=== PATIENT | male | born 1940 | race Caucasian/White ===

== ENCOUNTER 2017-09-02 11:12 | Day surgery (SDC) | payer MEDICARE, SELFPAY ==
[2017-09-02 12:02] VITALS: BP 146/87; PULSE 92; RESP 16; TEMP 36.1; O2SAT 94
[2017-09-02] MEDS: SODIUM CHLORIDE 0.9% 1,000 ML 200 ML IV (12:29)
--- NOTE | 2017-09-02 12:45 | PM.HP.1 ---
History of Present Illness Date Patient Seen: 09/02/17 Time Patient Seen: 12:45 Chief complaint: [id number] Narrative: 76-year-old male with personal history of colon polyps who presents today for routine colorectal surveillance. It has been 5 years since his last examination. He currently denies any gastrointestinal symptoms. No recent nausea, vomiting, abdominal pain, loss of appetite, unexplained weight loss, change in bowel habits, diarrhea, constipation, melena, hematochezia, or bright red blood per rectum. Patient History Medical History Benign prostatic hyperplasia (Acute) Hyperlipidemia (Acute) Hypertension (Acute) Osteoarthritis (Acute) Personal history of colonic polyps (Acute) Surgical History H/O arthroscopic knee surgery (Acute ~2013) H/O discectomy (Acute ~1975) H/O left knee surgery (Acute ~2012) History of colonoscopy (Acute) History of hip replacement (~2004) Family & Social History Family History: Reviewed 09/02/17 by Juanito Patel MD Social History: household members spouse Meds Home Medications Medication Instructions Recorded Confirmed Type fluticasone 0.05 mg INH QDAY #1 spr 02/06/16 09/02/17 Rx simvastatin 80 mg PO HS #90 tab 11/30/16 09/02/17 Rx lisinopril 10 mg PO QDAY #90 tab 07/14/17 09/02/17 Rx tamsulosin [Flomax] 0.4 mg PO QDAY 09/02/17 09/02/17 History Allergies Allergy/AdvReac Type Severity Reaction Status Date / Time No Known Drug Allergies Allergy Verified 09/02/17 12:34 Review of Systems Review of Systems All systems reviewed & are unremarkable except as noted in HPI and below Exam Vital Signs (past 8 hours): - 09/02/17 12:02 Temperature 97 F L Pulse Rate 92 H Respiratory Rate 16 Blood Pressure 146/87 H Pulse Oximetry 94 Oxygen Delivery Method Room Air Narrative Exam Narrative: Well-nourished well-developed elderly male in no acute distress. Alert oriented x3. His accompanies him at the bedside during my entire visit. Sclera nonicteric Neck supple Regular rate and rhythm Abdomen soft, nondistended, nontender, no masses Extremities show no clubbing, cyanosis, or edema Objective Labs Labs: No recent laboratory or radiographic studies for review Assessment & Plan Plan: Assessment/Plan Narrative: 76-year-old male with personal history of colon polyps. It has been 5 years since his last examination. He requires colorectal surveillance at this time for his history of polyps. Colonoscopy is once again recommended. Technical details of the procedure were discussed. Risks, benefits, alternatives were explained. Risks including but not limited to sedation, aspiration, bleeding, pain, missed lesion, incomplete examination, need for further radiographic studies, colonic perforation, need for major abdominal surgery, and all attendant risks of major surgery were discussed in detail. All questions were answered to his satisfaction, and he voiced understanding. Consent was placed on the chart. We will proceed as above.
--- NOTE | 2017-09-02 12:49 | PM.PREOP ---
Pre-operative Note Interval Note Pre-op Check: History & Physical Reviewed by Physician, Exam Performed and History & Physical exam performed today H&P completed within 30 days and has changed as indicated here:: 76-year-old male with personal history colon polyps seen and examined today. He requires colorectal surveillance for his history of polyps. Proceed with colonoscopy today as planned. ASA Class (for procedural sedation): II
[2017-09-02] MEDS: MIDAZOLAM 5 MG/5 ML VIAL IV (13:20)
[2017-09-02] MEDS: fentaNYL 250 MCG/5 ML INJ IV (13:20)
--- NOTE | 2017-09-02 13:25 | PM.OP.ENDO ---
Operative Date/Time/Diagnoses Date of procedure: 09/02/17 Time of procedure: 13:26 Pre-op diagnosis: Personal history of colon polyps Post-op diagnosis: other (Normal colon and rectum) Procedure & Clinicians Study performed: 1. Sedation per surgeon 2. Colonoscopy Same procedure as scheduled: Yes Indications: 76-year-old male with personal history of colon polyps. It has been at least 5 years since his last endoscopic surveillance. Colonoscopy is once again currently recommended. Surgeon: Juanito Patel Procedure Notes SCOAP/Timeout: Yes Procedure in detail: After obtaining informed consent, the patient was brought to the GI suite and placed in the left lateral decubitus position on the examination table. After placement of appropriate monitors, the patient was given incremental doses of Versed and Fentanyl until an appropriate level of sedation was achieved. A time out was held per SCOAP protocol. A digital rectal examination was performed and did not reveal any masses or obstructing lesions. The colonoscope was gently passed into the patient's anus and the entire colon navigated to the level of the cecum with minimal difficulty. Once in the cecum, the scope was withdrawn being sure to go before and beyond all mucosal folds and prominences and get an excellent examination. The findings are noted above. At the level of the rectal vault, the scope was retroflexed and the internal anal canal was examined. The scope was straightened and air aspirated from the colon. The instrument was removed from the patient's body and the procedure was concluded. The patient was allowed to awaken from sedation without difficulty and taken to the post-anesthesia care unit in good condition. Scope withdrawal time: 7:06 min Sedation minutes: 33 Findings: other findings (Normal colon and rectum) Specimen(s): none sent Complications: none Recommendations: High fiber diet and Other recommendation (No further colonoscopy indicated in the absence of symptoms) Plan for aftercare: 1. Discharged home Follow up: as needed Disposition: PACU
[2017-09-02 13:29] VITALS: BP 136/73; PULSE 73; RESP 10; TEMP 36.1; O2SAT 93
[2017-09-02 13:34] VITALS: BP 122/64; PULSE 75; RESP 15; TEMP 36.6; O2SAT 97
[2017-09-02 13:45] VITALS: BP 132/90; PULSE 68; RESP 16; TEMP 36.6; O2SAT 99
--- NOTE | 2017-09-02 13:58 | SUR.PHASEII ---
Abd soft. denied pain.
== END 2017-09-02 13:59 | disposition home or self-care (01) ==
PROVIDERS: Family Provider Family Medicine; PCP Family Medicine; Visit Provider Surgery
PROC: 0DJD8ZZ Inspection of Lower Intestinal Tract, Via Natural or Artificial Opening Endoscopic (ICD-10-PCS; CPT 45378; principal; 2017-09-02 13:00)
DX: Z86.010 Personal history of colon polyps (principal); N40.0 Benign prostatic hyperplasia without lower urinary tract symptoms; E78.5 Hyperlipidemia, unspecified; I10 Essential (primary) hypertension
CPT/HCPCS: G0121; 99152; 99153; G0105; J2250; J3010

== ENCOUNTER → 2018-07-06 09:23 | Outpatient (CLI) | payer MEDICARE, SELFPAY ==
[2018-07-06 10:12] LABS: Add Manual Diff / Slide Review NO; Basophils Absolute Auto 0 /uL (0-100); Basophils Percent Auto 0.9 % (0-2); Eosinophils Absolute Auto 100 /uL (0-450); Eosinophils Percent Auto 2.8 % (2-4); Hematocrit 42.2 % (41-53); Hemoglobin 14.5 g/dL (13.5-17.5); Lymphocytes Absolute Auto 1100 /uL (1100-4500); Lymphocytes Percent Auto 23.3 % (25-40); Mean Corpuscular HGB Conc 34.4 % (30-36); Mean Corpuscular Hemoglobin 32.3 PG (26-34); Mean Corpuscular Volume 93.8 fL (80-100); Monocytes Absolute Auto 300 /uL (0-900); Monocytes Percent Auto 7.6 % (3-14); Neutrophils Absolute Auto 3000 /uL (1500-7000); Neutrophils Percent Auto 65.4 % (50-75); Platelet Count 180 X10^3/uL (150-400); Red Cell Distribution Width 13.5 % (11.6-14.8); White Blood Cell Count 4.5 X10^3/uL (4.5-11.0)
[2018-07-06 10:34] LABS: Alanine Aminotransferase 28 IU/L (21-72); Albumin 4.4 g/dL (3.5-5.0); Albumin Globulin Ratio 1.4 (1.0-2.8); Alkaline Phosphatase 74 U/L (38-126); Aspartate Aminotransferase 30 IU/L (17-59); Bilirubin Total 0.8 mg/dL (0.2-1.3); Blood Urea Nitrogen 33 mg/dL (9-20); Calcium 10.9 mg/dL (8.4-10.2); Carbon Dioxide 27 mmol/L (22-32); Chloride 103 mmol/L (98-107); Cholesterol 220 mg/dL (140-199); Estimated Glomerular Filt Rate > 60.0 mL/min (>60); Globulin 3.1 g/dL (1.7-4.1); Glucose 111 mg/dL (80-110); HDL Cholesterol 66 mg/dL (40-60); HEMOLYSIS < 15 (0-50); LDL Cholesterol Calculated 127 mg/dL (<100); Potassium 4.9 mmol/L (3.4-5.1); Sodium 139 mmol/L (137-145); Total Protein 7.5 g/dL (6.3-8.2); Triglycerides 134 mg/dL (35-150)
[2018-07-06 11:05] LABS: Prostate Specific Antigen Scrn 1.73 ng/mL (0.1-4.0); Thyroid Stimulating Hormone 1.34 uIU/mL (0.47-4.68)
== END ==
PROVIDERS: PCP Family Medicine; Visit Provider Family Medicine
DX: E78.2 Mixed hyperlipidemia (principal); I10 Essential (primary) hypertension; N40.1 Benign prostatic hyperplasia with lower urinary tract symptoms
CPT/HCPCS: 36415; 80053; 80061; 84153; 84443; 85025; G0103

== ENCOUNTER → 2019-10-13 08:50 | Outpatient (CLI) | payer MEDICARE, SELFPAY ==
[2019-10-13 11:00] LABS: Add Manual Diff / Slide Review NO; Basophils Absolute Auto 100 /uL (0-100); Basophils Percent Auto 0.9 % (0-2); Eosinophils Absolute Auto 200 /uL (0-450); Eosinophils Percent Auto 3.2 % (2-4); Hematocrit 38.3 % (41-53); Lymphocytes Absolute Auto 1000 /uL (1100-4500); Lymphocytes Percent Auto 17.1 % (25-40); Mean Corpuscular HGB Conc 33.9 % (30-36); Mean Corpuscular Volume 94.5 fL (80-100); Monocytes Absolute Auto 500 /uL (0-900); Monocytes Percent Auto 7.9 % (3-14); Neutrophils Absolute Auto 4300 /uL (1500-7000); Neutrophils Percent Auto 70.9 % (50-75); Platelet Count 195 X10^3/uL (150-400); Red Blood Cell Count 4.05 X10^6/uL (4.5-5.9); Red Cell Distribution Width 13.4 % (11.6-14.8); White Blood Cell Count 6.1 X10^3/uL (4.5-11.0)
[2019-10-13 11:28] LABS: Carbon Dioxide 25 mmol/L (22-32); Chloride 104 mmol/L (98-107); HEMOLYSIS < 15 (0-50); Potassium 5.1 mmol/L (3.4-5.1); Sodium 137 mmol/L (137-145)
[2019-10-14 08:38] LABS: COVID19 Sendout Not Detected (Not Detect)
== END ==
PROVIDERS: Physician Assistant; PCP Family Medicine; Referring Provider Orthopaedic Surgery; Visit Provider Orthopaedic Surgery
DX: Z01.812 Encounter for preprocedural laboratory examination (principal); Z01.818 Encounter for other preprocedural examination; Z11.59 Encounter for screening for other viral diseases
CPT/HCPCS: 36415; 80051; 85025; 87635; 93005; 93010

== ENCOUNTER 2019-10-17 14:56 | Inpatient (IN) | payer MEDICARE, SELFPAY ==
[2019-10-12 08:58] VITALS: BMI 25.7
[2019-10-16] VITALS (16 sets, daily range): BP systolic 121–177; BP diastolic 52–103; PULSE 60–89; RESP 13–19; TEMP 35.8–36.8; O2SAT 95–99; BMI 25.7
--- NOTE | 2019-10-16 11:30 | PM.PREOP ---
Pre-operative Note COVID-19 COVID-19 status: Negative Result date/Date tested (Pos, Neg/Pending): 10/13/19 Interval Note History & Physical reviewed/Exam performed by Physician: Yes Changes to H&P: No
--- NOTE | 2019-10-16 11:30 | PM.OP.1 ---
Operative Date/Time/Diagnoses Date of procedure: 10/16/19 Time of procedure: 13:46 Pre-op diagnosis: Right knee osteoarthritis Post-op diagnosis: same Procedure & Clinicians Procedure: Right total knee arthroplasty Same procedure as scheduled: Yes Indications: The patient presents today for total knee arthroplasty after failure of conservative treatment. The nature of the procedure including the risks and benefits, alternatives, postoperative course and expected outcome were discussed and all questions answered. Consent was obtained. Operative site confirmed and marked. Surgeon: Gordy Lora Sulfur Chloride Operator: [place] Sierra Anesthesia Type: General, Spinal, Peripheral nerve block and Local Operative Notes Closure Type: primary Specimen(s): none sent Prosthetic devices, grafts, tissues, transplants, or devices: Lux and Nephew Ant BCS: 7 femoral component, 6 tibial component, 9 mm BCS polyethylene tray and 32 x 9 mm round patella Applied: implant(s) Estimated Blood Loss (mL): 5 Blood products transfused: none Tourniquet time (min): 50 Procedure in detail: The patient was taken to the operative suite and placed under anesthesia. The patient was given prophylactic antibiotics prior to surgery. The patient was also given tranexamic acid, 1 g, just prior to surgery for postoperative hemostasis. The lateral knee was prepped and the joint injected with 20 mL of 1% Lidocaine with epinephrine. The knee was then prepped and draped in usual sterile fashion. The leg was exsanguinated with an Esmarch dressing and the tourniquet raised to 250 torr. A 15 cm anterior incision was made. Next a medial trivector arthrotomy was made. The extensor mechanism was marked to ensure accurate repair. Initial exposing dissection was carried out medially and laterally. The knee was then flexed and the intramedullary femoral guide chetna placed. The distal femoral cut was made in 6? of valgus at the +2 position. The femoral size was measured and the appropriate cutting block was then placed and the anterior, posterior and chamfer cuts made. The intramedullary tibial alignment chetna was then placed. The guide was set to remove approximately 9 mm from the less affected medial side. The proximal tibial cut was then made with an oscillating saw. All meniscus and bony debris was then removed. Posterior femoral osteophytes removed with a curved osteotome. Flexion extension gaps were checked. There was slight tightness laterally which is not unexpected given his preoperative alignment. This was corrected using a pie crust type technique with 15 blade and lateral capsular tissue. The soft tissues were then injected with a combination of 20 mL of half percent Marcaine with epinephrine and 20 mL of Exparel. The trial components were then placed. The knee was then extended and the patellar thickness was measured and a cut made removing approximately 9 mm of bone. The patella was then sized and drilled. Some excess lateral bone was excised and the patellofemoral ligament released. The knee went into full extension and flexion beyond 130?. There was excellent medial-lateral balance throughout motion. Patellar tracking was excellent. The trial components were removed and the knee was cleansed with Pulsavac irrigation and dried. The final components were cemented with high viscosity vacuum mixed bone cement with antibiotics. The joint was filled with a dilute Betadine solution. The knee was held in extension and the patellar clamped until the cement was adequately cured. The knee was then irrigated. The extensor mechanism was closed with 5 interrupted #1 Vicryl sutures and a running Quill suture at approximately 90 degrees of flexion. The joint was then injected with a combination of 1 g of tranexamic acid and 20 mL of quarter percent Marcaine with epinephrine. The subcutaneous tissue was closed with 2 0 Vicryl. The skin was closed with absorbable subcuticular sutures and surgical adhesive. An Aquacel dressing and Vinay wrap were then applied. The patient tolerated the procedure well and was returned to recovery room in good condition. Complications: none Post-operative Condition: stable Disposition: PACU Plan for aftercare: [facility] Protocol.
--- NOTE | 2019-10-16 11:32 | DI.RAD.S_ITS ---
PROCEDURE: XR KNEE RT 1TO2V INDICATIONS: tka TECHNIQUE: AP and lateral views of the knee acquired. COMPARISON: [facility] [place], CR, XR KNEE ARTHRITIC SERIES RT, 08/29/2019, 13:01. FINDINGS: Bones: Patient is status post total knee arthroplasty. Hardware components are in expected positions. Visualized bony structures are intact. Soft tissues: Overlying postoperative changes are noted. IMPRESSION: Status post total knee arthroplasty with expected postsurgical changes. Dictated by: Hiren Kamara M.D. on 10/16/2019 at 16:35 Approved by: Hiren Kamara M.D. on 10/16/2019 at 16:36
--- NOTE | 2019-10-16 11:44 | SUR.OPER ---
Supine on padded OR bed. Pillow under head, arms secured on padded armboards <90 degree abduction. Safety belt across torso. Non-operative leg secured with tape over blanket over lower leg. Operative leg secured in DeMayo/Sohail positioner. Foam padded brace at thigh of operative leg.
[2019-10-16] MEDS: ACETAMINOPHEN 325 MG TABLET 975 MG PO (12:06)
[2019-10-16] MEDS: CELECOXIB 200 MG CAPSULE PO (12:07)
[2019-10-16] MEDS: CEFAZOLIN 2 GM/100 ML FROZ.PIGGY IV ×2 (12:07→20:35)
[2019-10-16] MEDS: LACTATED RINGERS 1,000 ML 42 ML IV ×2 (12:08→13:00)
[2019-10-16] MEDS: LIDOCAINE 1% W/EPI 20 ML INJ (12:54)
[2019-10-16] MEDS: BUPIVACAINE 0.25% W/ EPI (PF) 20 ML, TRANEXAMIC ACID 1,000 MG, SODIUM CHLORIDE 0.9% 10 ML INJ (12:55)
[2019-10-16] MEDS: BUPIVACAINE 0.25% W/ EPI (PF) 40 ML, BUPIVACAINE LIPOSOME 266 MG, SODIUM CHLORIDE 0.9% ... INJ (12:57)
[2019-10-16] MEDS: OXYCODONE IR 5 MG TABLET PO ×2 (15:15→16:10)
--- NOTE | 2019-10-16 15:15 | SUR.PHASEI ---
Report called to Katie
[2019-10-16] MEDS: IBUPROFEN 400 MG TABLET PO ×2 (16:10→20:36)
[2019-10-16] MEDS: LACTATED RINGERS 1,000 ML 100 ML IV (16:10)
[2019-10-16] MEDS: ACETAMINOPHEN 325 MG TABLET 650 MG PO ×2 (16:10→20:36)
[2019-10-16] MEDS: HYDROMORPHONE 0.5 MG INJ 0.2 MG IV (17:27)
[2019-10-16] MEDS: HYDROMORPHONE 2 MG TABLET PO ×2 (19:12→23:48)
[2019-10-16] MEDS: hydrOXYzine pamoate 25 MG CAPSULE PO (19:13)
[2019-10-16] MEDS: DOCUSATE 100 MG CAPSULE PO (20:36)
[2019-10-16] MEDS: ASPIRIN EC 81 MG TABLET PO (20:36)
[2019-10-16] MEDS: TAMSULOSIN 0.4 MG CAPSULE PO (20:36)
[2019-10-16] MEDS: SIMVASTATIN 40 MG TABLET 80 MG PO (20:36)
[2019-10-17] MEDS: IBUPROFEN 400 MG TABLET PO ×6 (01:21→20:45)
[2019-10-17] MEDS: HYDROMORPHONE 2 MG TABLET PO ×6 (03:25→21:06)
[2019-10-17] MEDS: CEFAZOLIN 2 GM/100 ML FROZ.PIGGY IV (03:26)
[2019-10-17 05:00] VITALS: BP 172/93; PULSE 70; RESP 18; TEMP 36.6; O2SAT 98
[2019-10-17] MEDS: hydrOXYzine pamoate 25 MG CAPSULE PO (05:09)
[2019-10-17 06:18] LABS: Hematocrit 34.5 % (41-53); Hemoglobin 11.6 g/dL (13.5-17.5)
[2019-10-17 07:39] VITALS: BP 164/78; PULSE 71; RESP 18; TEMP 36.9; O2SAT 98
[2019-10-17] MEDS: TAMSULOSIN 0.4 MG CAPSULE PO ×2 (07:51→20:45)
[2019-10-17] MEDS: LORATADINE 10 MG TABLET PO (07:51)
[2019-10-17] MEDS: lisinopriL 10 MG TABLET PO (07:51)
[2019-10-17] MEDS: ACETAMINOPHEN 325 MG TABLET 650 MG PO ×3 (07:51→20:45)
[2019-10-17] MEDS: DOCUSATE 100 MG CAPSULE PO ×2 (07:51→20:45)
[2019-10-17] MEDS: ASPIRIN EC 81 MG TABLET PO ×2 (07:51→20:45)
[2019-10-17] MEDS: FLUTICASONE 120 SPRAY/16 GM SPRAY.SUSP NASAL (07:52)
[2019-10-17] MEDS: SODIUM CHLORIDE 0.9% FLUSH 10 ML IV ×2 (07:52→20:45)
--- NOTE | 2019-10-17 09:18 | PT.IIE ---
Current Diagnoses Unilateral primary osteoarthritis, left knee (10/16/19) Surgery Performed Operation Date: 10/16/19 12:15 Actual Procedures p Total Knee Arthroplasty(Right) - Gordy Lora MD Surgical History (Last Updated 10/12/19 @ 09:11 by Destiny Gonsales RN) H/O arthroscopic knee surgery (Acute ~2013) H/O discectomy (Acute ~1975) H/O left knee surgery (Acute ~2012) History of colonoscopy (Acute) History of hip replacement (~2004) History of vasectomy (Acute) Hx of tonsillectomy (Acute) Medical History (Last Updated 10/12/19 @ 09:11 by Destiny Gonsales RN) Benign prostatic hyperplasia (Acute) Hyperlipidemia (Acute) Hypertension (Acute) Melanoma (Acute) Osteoarthritis (Acute) Personal history of colonic polyps (Acute) Sinus congestion (Acute) Skin cancer (Acute) Physical Therapy Inpatient Evaluation/Re-Eval M1 PT/OT-IP Prior Functional Status Start: 10/17/19 12:10 Freq: NEEDED Status: Active Protocol: Document 10/17/19 09:18 AB (Rec: 10/17/19 12:29 [id number]) Medical Review Prior Functional Status Medical History Reviewed Yes Communication able to make needs known Mobility and Gait pt stated that he is independent with all mobilities and ambulation wtihout AD Social History Household Members spouse Living Arrangements House Number of Floors (Floors) Two Floors Number of Stairs To Enter/Railing? no steps to enter but has 18 steps with B rails to main level of the house Pt lives in [facility] Home Environment High Toilet,Tub/Shower Home Equipment Front Wheel Walker,Straight Cane,Shower Seat with Backrest ,Grab Bars In Shower M2 PT-IP Current Condition Start: 10/17/19 12:10 Freq: NEEDED Status: Active Protocol: Document 10/17/19 09:18 AB (Rec: 10/17/19 12:29 AB [id number]) Physical Therapy Current Condition Current Condition Evaluation Date 10/17/19 Treatment Diagnosis s/p R TKA; difficulty in walking Onset Date 10/16/19 Weight Bearing Status Weight Bearing Status Weight Bear as Tolerated Allowed Weight Bearing Amount (enter % RLE: WBAT or #) (%) M3 PT-IP Subjective Start: 10/17/19 12:10 Freq: NEEDED Status: Active Protocol: Document 10/17/19 09:18 AB (Rec: 10/17/19 12:29 AB [id number]) Subjective Physical Therapy Visit Type Type Initial Evaluation Visit Start Time 09:18 Visit Stop Time 10:05 Total Visit Minutes 29 Number of HAND PROFILER Visits 0 Physical Therapy Visit Comments Patient Comments pt is agreeable to do PT; pt stated that he cannot go home today and maybe has to go to a rehab place Therapy Pain Assessment Pain When Pain Assessed During Mobility Location rt knee Intensity 8 Scale Used Numeric (0 - 10) Pain Management Techniques Apply Cold,Distraction, Modification of Treatment,Re- positioning,Timing of Activity with Medications M4 PT-IP Mobility and Gait Start: 10/17/19 12:10 Freq: NEEDED Status: Active Protocol: Document 10/17/19 09:18 AB (Rec: 10/17/19 12:29 [id number]) PT-Bed Mobility Assessment Supine to Sit Supine to Sit Standby Assistance PT-Transfer Assessment Sit to and From Stand Sit to and from Stand Moderate Assistance,1 Person Assistance,Use of Upper Extremities Equipment Transfer Assistive Device Gait Belt,Front Wheeled Walker Orthotic/Prosthetic Devices or Brace: No Transfers Transfer Destination Chair Transfer Technique ambulated using FWW Transfer Ability Level of Assist Moderate Assistance,1 Person Assistance,Use of Upper Extremities Comments Mobility Comments pt completed supine to sit SBA . was able to sit on EOB SBA. completed sit to stand mod A and cues. ambulated towards the bed ~ 15 ft using FWW mod A and cues. agreed to walk more. completed sit to stand from chair x 2 reps mod A and cues. ambulated using FWW mod A and cues ~ 15 ft and stated that he has to sit down. agreed to sit up on chair. completed sit to stand again from EOB mod A and ambulated towards the chair 15 ft using FWW mod A. positioned pt on chair. call light and table placed within reach. Gait Assessment Gait Gait Assistance Required: Moderate Assistance Distance (Feet) 15 Able to Maintain Weight Bearing Status Yes During Gait Assistive Devices Assistive Device Gait Belt,Front Wheeled Walker Orthotic/Prosthetic Devices or Brace: No Gait Deviations General Gait Pattern Antalgic,Decreased Stride Length,Decreased Feet Clearance,Step-to Gait Factors Limiting Gait Function Factors Limiting Gait Function Decreased Activity Tolerance, Decreased Strength,Difficulty Following Directions,Limited Range of Motion,Pain,Poor Balance,Poor Safety Awareness Comments Gait Comments completed ambulation using FWW mod A 15 ft x 3. requires cues for R quads activation. PT-Balance Assessment Sitting Balance and Reactions Static Sitting Balance Ability Good Dynamic Sitting Balance Ability Good Standing Balance and Reactions Static Standing Balance Ability Fair Dynamic Standing Balance Ability Fair Device Used FWW M5 PT-IP Objective Assessments Start: 10/17/19 12:10 Freq: NEEDED Status: Active Protocol: Document 10/17/19 09:18 AB (Rec: 10/17/19 12:29 AB [id number]) Orientation Orientation/Cognition Level of Alertness Alert Safety Awareness Decreased Safety Awareness Gross Range of Motion Lower Extremity ROM Assessment Right Impaired Impairments R knee flexion: ~ 70 deg extension: 10 deg less of neutral 0 Strength Lower Extremity Strength Assessment Right Impaired Hip 4-/5 Knee 3+/5 Sensation Assessment Sensation Gross Sensation WNL Muscle Tone Muscle Tone WNL Yes M6 PT-IP Treatment Start: 10/17/19 12:10 Freq: NEEDED Status: Active Protocol: Document 10/17/19 09:18 AB (Rec: 10/17/19 12:29 AB [id number]) Physical Therapy Treatment Exercises Exercises Heel Slides Education Education Provided Precautions,Weight Bearing Status,Post-Op Packet,Safety Other Treatments Other Treatment Performed completed heels slides prior to getting up out of bed pt has FWW in room but one side does not lock in place. educated pt on safety and options for obtaining one. stated that he will ask his spouse to buy one. M7 PT-IP Assessment and Plan Start: 10/17/19 12:10 Freq: NEEDED Status: Active Protocol: Document 10/17/19 09:18 AB (Rec: 10/17/19 12:29 AB [id number]) PT Summary Assessment and Plan Potential Rehabilitation Potential Good Status of Condition at Evaluation Evolving Summary Impairments Pain,ROM,Strength,Balance, Coordination,Sensation,Tone, Cognition,Bed Mobility, Transfers,Gait,Activity Tolerance Assessment Summary pt requiring mod A with transfers and ambulation using FWW. d/c plan depending on progress but at this time may require SNF rehab. caregiver training will be conducted when appropriate as well as stair climbing prior to d/c. will continue to assess progress. Goals Bed Mobility Goal Independent Transfer Goal Standby Assistance,Front Wheeled Walker Gait Goal Standby Assistance,Front Wheel Walker Gait Distance 200 Other Goals up/down 18 steps B rails SBA Days to Meet Goals 5 Frequency of Treatment Frequency Of Treatment Twice a Day Treatment Plan Physical Therapy Treatment Plan Bed Mobility Training,Transfer Training,Gait Training, Therapeutic Exercise,Balance Retraining,Post Op Education, Discharge Planning,Hot or Cold Pack,Neuromuscular Re-ed, Coordination Retraining,Manual Therapy Other Recommendations and Next Treatment ambulation, stair climbing Focus Recommendations To Nursing Amount of Assist Needed 1 Person Assist Discharge Recommendations PT Discharge Recommendations Home with Assistance,SNF Rehab ,Outpatient PT Other Discharge Recommendations SNF vs home with assist and outpt PT Equipment Needed for Home Before FWW Discharge Transportation Needs at Discharge Private Vehicle,Wheelchair/ Cabulance
--- NOTE | 2019-10-17 09:48 | CM.DANOTE ---
DCP/Assessment: Reviewed chart. Patient is a 78yr old male admitted to [facility] for elective right TKA performed on 10-16-19. PCP is Dr. Morrissey. Primary payor is 1)Medicare 2)[employer]. Met with patient explained role. Patient plans to d/c home when medically stable. Resides with spouse on [facility]. Therapy evaluation pending. P: CM team to continue to follow. Anticipate home within the next 24hrs. GEN Zaragoza Discharge Planning/Care Management CM Discharge Assessment Start: 10/17/19 09:45 Freq: Status: Active Protocol: Document 10/17/19 09:45 KJS (Rec: 10/17/19 09:48 KJS [id number]) Discharge Planning Assessment Assigned Cathode Ray Tube Salvage Processor GEN Zaragoza Contact Information Poonam Boyle (spouse) Advance Directives? Yes Advance Directives on File No History Provided By Patient,Medical Record Prior Living Arrangements House Household Members spouse Type of transporation used prior to Drives own vehicle admit Independent with ADL's Yes Is patient alert and oriented? Yes Caregiver for Another No DME Already Rented / Owned FWW / Walker Patient/Family Preference OP PT Therapy Barriers to Discharge No Discharge Plan Home Whiteboard Updated in Patient Room with Yes name and ext. # of Cathode Ray Tube Salvage Processor Review Status In Process Next Review Type Continued Stay Review Pre-Anesthesia Assessment Start: 10/12/19 08:58 Freq: Status: Complete Protocol: Document 10/12/19 08:58 CAB (Rec: 10/12/19 09:37 CAB [id number]) Pre-Anesthesia Assessment Preferred Name Rigoberto or Bharath Patient Information Reviewed Via Phone Assessment Assessment Completed With Patient Comment Will do labs/EKG & COVID screen @ 10/13/19 Primary Care Provider Ab Morrissey Seen Specialist in Last 12 Months Yes Specialist Seen Thinner Sprayer,Orthopedist Primary Language Bhutanese Steel Tester Required No Height 185.42 cm Weight 88.451 kg Body Mass Index (BMI) 25.7 Hearing Ability Normal Visual Assist Glasses Dentition Type Teeth, Natural Present Barriers to Learning None Hx Anesthesia Reactions No Hx Family Anesthesia Reaction No Hx Malignant Hyperthermia No Hx Blood Transfusions No Anesthesia Review Requested No alcohol intake current alcohol intake frequency 0-2 drinks per day Smoking Status Never smoker Substance Use Type does not use Pain Present Pain Reported Musculoskeletal Symptoms Abnormal Gait,Difficulty Walking,Joint Pain History of Falling (Recent or History of Yes ) Patient is completely paralyzed or No completely immobile Mental Status Oriented to own ability Is patient on oxygen? No Does patient have WALTER/SOB No Hx Sleep Apnea No Currently Taking a Beta Miguel No Can You Climb a Flight of Stairs Without Yes SOB Hx Chest Pain No Hx SOB No Hx Syncope or Dizziness No Anti-Coagulant Therapy No Has a Physical Education Aide No Cardiac Testing No Hx Pacemaker/ICD No Pacemaker Rep Required? No Cardiac Clearance Received Not Applicable Diet Type At Home Regular dysphagia No Bladder Pattern Nocturia Urinary Catheter Present No Hx Urinary Self Catheterization No Diabetes No Hx Drug Resistant Organism No Presence of External or Internal Medical Yes: Bilat hip prosthesis Devices Have you had any close contact with No someone diagnosed with COVID-19? Marital Status Lives With spouse Prior Living Arrangements House Number of Floors (Floors) Two Floors Support System Friend(s),Spouse Does the Patient Have Assistance After Yes Surgery Patient Discharge Plan Description Return Home Comment Pt advised 1-2 day length of stay per surgeon Additional comment Lives on [facility] Feels Safe in Current Environment Yes Been Physically Hurt or Threatened By a No Person in Current Environment Do you have thoughts of harming yourself None or others? Are you currently considering suicide? No Do you have a plan to hurt yourself or No Plan others? Do You Have Any Spiritual Beliefs That No May Affect Your HC Choices? Do You Have Any Cultural Practices That No May Affect Your HC Choices? Comment Presbyterian Who Can We Speak to About Patient's Care Family, friends Identifying Code for Release of Patient Declines to issue Information Health Care Proxy/Next of Kin Poonam () Health Care Proxy [phone] Emergency Contact Name Poonam () Emergency Contact [phone] Advance Directives? Yes: Pt declines to bring in copy Advance Directives on File No Power of Cocoa Milling Machine Operator Yes: Nothing legally written out, but is first contact Power of Cocoa Milling Machine Operator Name Poonam Boyle- Power of Cocoa Milling Machine Operator Cell PAC Instructions Durable medical equipment, Medications to take/avoid, Nasal antibiotic,No ETOH/ petroleum product on skin DOS, Post-op transportation,Sensory aids,Sturdy shoes/comfortable clothes,Do not bring valuables and remove jewelry
[2019-10-17 11:35] VITALS: BP 155/79; PULSE 65; RESP 16; TEMP 36.6; O2SAT 98
--- NOTE | 2019-10-17 11:38 | P.PN_ITS ---
Subjective Subjective Date Patient Seen: 10/17/19 Time Patient Seen: 11:39 Interval history: The patient is progressing well. Pain is well controlled. Exam Vital Signs (past 8 hours): - 10/17/19 05:00 10/17/19 07:39 10/17/19 11:35 Temperature 97.9 F 98.4 F 97.8 F Pulse Rate 70 71 65 Respiratory Rate 18 18 16 Blood Pressure 172/93 H 164/78 H 155/79 H Pulse Oximetry 98 98 98 Oxygen Delivery Method Room Air Oxygen Flow Rate 0 Narrative Exam Narrative: The dressing is intact. There is expected swelling. The leg is neurovascularly intact. Objective Labs Result Diagrams: 10/17/19 04:52 Labs: Laboratory Results - last 24 hr 10/17/19 04:52 Hgb 11.6 L Hct 34.5 L Assessment & Plan Post-op Postoperative Procedures: Procedures Operation Date: 10/16/19 12:15 Actual Procedures Side Surgeon p Total Knee Arthroplasty Right Gordy Lora MD Postoperative status narrative: The patient is progressing as expected postop day 1 total knee arthroplasty. Will discharge plan discharge to home tomorrow. He lives on [facility] [address] which is only accessible by water taxi or plain. Quality VTE Deep Vein Thrombosis/Pulmonary Embolism Present on Admission: No
--- NOTE | 2019-10-17 14:30 | PT.IPTN ---
Current Diagnoses Unilateral primary osteoarthritis, left knee (10/17/19) Surgery Performed Operation Date: 10/16/19 12:15 Actual Procedures p Total Knee Arthroplasty(Right) - Gordy Lora MD Physical Therapy Treatment Note M2 PT-IP Current Condition Start: 10/17/19 12:10 Freq: NEEDED Status: Active Protocol: Document 10/17/19 09:18 AB (Rec: 10/17/19 12:29 AB [id number]) Physical Therapy Current Condition Current Condition Evaluation Date 10/17/19 Treatment Diagnosis s/p R TKA; difficulty in walking Onset Date 10/16/19 Weight Bearing Status Weight Bearing Status Weight Bear as Tolerated Allowed Weight Bearing Amount (enter % RLE: WBAT or #) (%) M3 PT-IP Subjective Start: 10/17/19 12:10 Freq: NEEDED Status: Active Protocol: Document 10/17/19 14:30 AB (Rec: 10/17/19 15:54 AB [id number]) Subjective Physical Therapy Visit Type Type Treatment Note Visit Start Time 14:30 Visit Stop Time 14:42 Total Visit Minutes 12 Number of GREEN FEED ATTENDANT Visits 0 Physical Therapy Visit Comments Patient Comments pt agreed to do PT but refused to do stair climbing training today Therapy Pain Assessment Pain When Pain Assessed During Mobility Pain Present Pain Present Pain Reported Location rt knee Intensity 7 Scale Used Numeric (0 - 10) Pain Behaviors Guarding Pain Management Techniques Distraction,Modification of Treatment,Timing of Activity with Medications M4 PT-IP Mobility and Gait Start: 10/17/19 12:10 Freq: NEEDED Status: Active Protocol: Document 10/17/19 14:30 AB (Rec: 10/17/19 15:54 AB [id number]) PT-Bed Mobility Assessment Supine to Sit Supine to Sit Standby Assistance Sit to Supine Sit to Supine Standby Assistance PT-Transfer Assessment Sit to and From Stand Sit to and from Stand Minimal Assistance,1 Person Assistance,Use of Upper Extremities Equipment Transfer Assistive Device Gait Belt,Front Wheeled Walker Orthotic/Prosthetic Devices or Brace: No Comments Mobility Comments completed supine to sit SBA and cues. completed sit to stand min A from EOB with cues . pt can be impulsive and cues provided for techniques and safety. pt completed ambulation in room using FWW ~ 30 ft. refused to do stair training and stated that he is not ready for it. pt requested to go back to bed afterwards and stated that he did not sleep well last night and wants to take a nap. completed sit to supine SBA. positioned pt in bed. call light and table placed within reach. Gait Assessment Gait Gait Assistance Required: Minimum Assistance Distance (Feet) 30 Able to Maintain Weight Bearing Status Yes During Gait Assistive Devices Assistive Device Gait Belt,Front Wheeled Walker Orthotic/Prosthetic Devices or Brace: No Gait Deviations General Gait Pattern Antalgic,Decreased Stride Length,Decreased Feet Clearance,Step-to Gait Factors Limiting Gait Function Factors Limiting Gait Function Decreased Activity Tolerance, Decreased Strength,Difficulty Following Directions,Pain,Poor Balance,Poor Safety Awareness Comments Gait Comments pt presents with unsteady shuffling gait and has decrease safety awareness affecting mobility independence. Stair Climbing Assessment Comments Stair Climbing Comments pt refused M5 PT-IP Objective Assessments Start: 10/17/19 12:10 Freq: NEEDED Status: Active Protocol: Document 10/17/19 09:18 AB (Rec: 10/17/19 12:29 AB [id number]) Orientation Orientation/Cognition Level of Alertness Alert Safety Awareness Decreased Safety Awareness Gross Range of Motion Lower Extremity ROM Assessment Right Impaired Impairments R knee flexion: ~ 70 deg extension: 10 deg less of neutral 0 Strength Lower Extremity Strength Assessment Right Impaired Hip 4-/5 Knee 3+/5 Sensation Assessment Sensation Gross Sensation WNL Muscle Tone Muscle Tone WNL Yes M6 PT-IP Treatment Start: 10/17/19 12:10 Freq: NEEDED Status: Active Protocol: Document 10/17/19 14:30 AB (Rec: 10/17/19 15:54 AB [id number]) Physical Therapy Treatment Exercises Exercises Heel Slides Education Education Provided Safety M7 PT-IP Assessment and Plan Start: 10/17/19 12:10 Freq: NEEDED Status: Active Protocol: Document 10/17/19 14:30 AB (Rec: 10/17/19 15:54 AB [id number]) PT Summary Assessment and Plan Potential Rehabilitation Potential Good Summary Impairments Pain,ROM,Strength,Balance, Coordination,Sensation,Tone, Cognition,Bed Mobility, Transfers,Gait,Activity Tolerance Progress Towards Goals Slow Progress due to Pain,Slow Progress due to Activity Tolerance Assessment Summary pt requiring min A with mobility but continues to have decrease activity tolerance and decrease safety awareness affecting mobility independence. pt will require SNF rehab at this time to improve mobility. Goals Bed Mobility Goal Independent Transfer Goal Standby Assistance,Front Wheeled Walker Gait Goal Standby Assistance,Front Wheel Walker Gait Distance 200 Other Goals up/down 18 steps B rails SBA Days to Meet Goals 5 Frequency of Treatment Frequency Of Treatment Twice a Day Treatment Plan Physical Therapy Treatment Plan Bed Mobility Training,Transfer Training,Gait Training, Therapeutic Exercise,Balance Retraining,Post Op Education, Discharge Planning,Hot or Cold Pack,Neuromuscular Re-ed, Coordination Retraining,Manual Therapy Other Recommendations and Next Treatment ambulation, stair climbing Focus Recommendations To Nursing Amount of Assist Needed 1 Person Assist Discharge Recommendations PT Discharge Recommendations SNF Rehab Equipment Needed for Home Before FWW if pt goes home Discharge Transportation Needs at Discharge Private Vehicle,Wheelchair/ Cabulance
[2019-10-17 15:52] VITALS: BP 143/72; PULSE 70; RESP 18; TEMP 36.3; O2SAT 96
--- NOTE | 2019-10-17 16:22 | CM.DANOTE ---
DCP/continued: Reviewed chart. It is anticipated that patient may need SNF prior to returning home. Met with patient and he prefers to return home but agreeable to SNF if recommended by provider. First SNF choice is [facility]. Patient changed to inpatient status today, therefore, eligible for SNF on 10-19. Placed call to July at [facility] and she can accept. She will just need to be notified of d/c day. ASSISTANT GM OF CONTENT & DELIVERY unable to call her back with admit date of today. P: Anticipate home vs. [facility] depending on patient's progress. PASSR needed. GEN Zaragoza
[2019-10-17 20:00] VITALS: BP 152/72; PULSE 79; RESP 20; TEMP 37.3; O2SAT 95
[2019-10-17] MEDS: SIMVASTATIN 40 MG TABLET 80 MG PO (20:45)
[2019-10-17 23:50] VITALS: BP 160/80; PULSE 76; RESP 18; TEMP 36.2; O2SAT 96
[2019-10-18] MEDS: IBUPROFEN 400 MG TABLET PO ×6 (00:01→20:51)
[2019-10-18] MEDS: HYDROMORPHONE 2 MG TABLET PO ×4 (00:02→11:43)
[2019-10-18 04:00] VITALS: BP 132/56; PULSE 70; RESP 18; TEMP 36.6; O2SAT 98
[2019-10-18 08:00] VITALS: BP 135/61; PULSE 73; RESP 16; TEMP 36.6; O2SAT 97
--- NOTE | 2019-10-18 08:08 | CM.DPC ---
DCP SNF vs Home Call from July at [facility] stating that they can accept pt when stable for d/c if SNF still needed. Pt has been hopeful to d/c home to [facility] with spouse pending progress with PT. If SNF, then updated COVID will be needed and PASRR. Plan: SW to follow closely after further PT to determine SNF vs return home with spouse pending progress. Medicare will cover SNF as of Wednesday. GEN Bowman
[2019-10-18 08:15] VITALS: O2SAT 97
--- NOTE | 2019-10-18 08:30 | PC.NURSE ---
Addendum entered by Gloria Hearn R.N. 10/18/19 10:27: Patient is working with physical therapy now. He denies pain after medication given and this has been helpful for his r.knee pain. Addendum entered by Gloria Hearn R.N. 10/18/19 08:47: Patient just given dilaudid 2mg for complaints of pain when lifting his r.leg up in bed. Dilaudid seems to help his discomfort. Original Note: Patient adamant that he is going home tomorrow because he lives on [facility]. This is his second post op day and he states that he is feeling well. He has a r.knee aquacel dressing with an jeyson wrap on top. He denies any numbness or tingling to leg, he does have 1+ non pitting edema. PPx2 and cms wnl. He is resting comfortably at this time and eating his breakfast.
[2019-10-18] MEDS: ASPIRIN EC 81 MG TABLET PO ×2 (08:42→20:52)
[2019-10-18] MEDS: DOCUSATE 100 MG CAPSULE PO ×2 (08:42→20:52)
[2019-10-18] MEDS: FLUTICASONE 120 SPRAY/16 GM SPRAY.SUSP NASAL (08:42)
[2019-10-18] MEDS: TAMSULOSIN 0.4 MG CAPSULE PO ×2 (08:42→20:51)
[2019-10-18] MEDS: lisinopriL 10 MG TABLET PO (08:42)
[2019-10-18] MEDS: ACETAMINOPHEN 325 MG TABLET 650 MG PO ×3 (08:43→20:52)
[2019-10-18] MEDS: LORATADINE 10 MG TABLET PO (08:44)
--- NOTE | 2019-10-18 09:40 | PM.PNPO.1 ---
Subjective Subjective Date Patient Seen: 10/18/19 Time Patient Seen: 09:40 Interval history: Pain is moderate to severe depending on activity level. No fever chills. No nausea vomiting. Exam Vital Signs (past 8 hours): - 10/18/19 04:00 10/18/19 08:00 10/18/19 08:15 Temperature 97.8 F 97.8 F Pulse Rate 70 73 Respiratory Rate 18 16 Blood Pressure 132/56 L 135/61 Pulse Oximetry 98 97 97 Oxygen Delivery Method Room Air Oxygen Flow Rate 0 Narrative Exam Narrative: Pleasant 78-year-old male resting comfortably in bed in no apparent distress. Right knee dressing is clean, dry and intact. Right leg is warm and dry. Motor functions intact. Sensation grossly intact to light touch. Objective Labs Result Diagrams: 10/17/19 04:52 Assessment & Plan Post-op Postoperative Procedures: Procedures Operation Date: 10/16/19 12:15 Actual Procedures Side Surgeon p Total Knee Arthroplasty Right Gordy Lora MD Postop day 2 status post right total knee arthroplasty. Mobilize with physical therapy. Patient has several steps into his house. Work on lower extremity strength and mobility likely discharge home tomorrow. Patient's is home to assist him. Quality VTE Deep Vein Thrombosis/Pulmonary Embolism Present on Admission: No
--- NOTE | 2019-10-18 11:02 | PT.IPTN ---
Current Diagnoses Unilateral primary osteoarthritis, left knee (10/17/19) Surgery Performed Operation Date: 10/16/19 12:15 Actual Procedures p Total Knee Arthroplasty(Right) - Gordy Lora MD Physical Therapy Treatment Note M2 PT-IP Current Condition Start: 10/17/19 12:10 Freq: NEEDED Status: Active Protocol: Document 10/17/19 09:18 AB (Rec: 10/17/19 12:29 AB [id number]) Physical Therapy Current Condition Current Condition Evaluation Date 10/17/19 Treatment Diagnosis s/p R TKA; difficulty in walking Onset Date 10/16/19 Weight Bearing Status Weight Bearing Status Weight Bear as Tolerated Allowed Weight Bearing Amount (enter % RLE: WBAT or #) (%) M3 PT-IP Subjective Start: 10/17/19 12:10 Freq: NEEDED Status: Active Protocol: Document 10/18/19 10:18 SP (Rec: 10/18/19 13:30 SP [email or web address]) Subjective Physical Therapy Visit Type Type Treatment Note Visit Start Time 10:18 Visit Stop Time 11:02 Total Visit Minutes 44 Number of SOLAR SALES ADVISOR Visits 1 Physical Therapy Visit Comments Patient Comments Pt willing to work with therapy. Therapy Pain Assessment Pain When Pain Assessed During Mobility Pain Present Pain Present Pain Reported Location rt knee Intensity 4 Scale Used Numeric (0 - 10) Pain Behaviors Moaning Pain Management Techniques Re-positioning,Timing of Activity with Medications M4 PT-IP Mobility and Gait Start: 10/17/19 12:10 Freq: NEEDED Status: Active Protocol: Document 10/18/19 10:18 SP (Rec: 10/18/19 13:30 SP [email or web address]) PT-Bed Mobility Assessment Supine to Sit Supine to Sit Standby Assistance Sit to Supine Sit to Supine Standby Assistance Scooting Scooting to Edge of Bed Standby Assistance PT-Transfer Assessment Sit to and From Stand Sit to and from Stand Contact Guard Assistance,1 Person Assistance,Use of Upper Extremities Equipment Transfer Assistive Device Gait Belt,Front Wheeled Walker Orthotic/Prosthetic Devices or Brace: No Transfers Transfer Destination Chair,Wheelchair Transfer Technique ambulated using FWW Transfer Ability Level of Assist Contact Guard Assistance,1 Person Assistance,Use of Upper Extremities Comments Mobility Comments Pt was elevated supine when arrived. Instructed LE post op ex: ankle pumps, heel slide using gait belt for self support approx 90 deg able to complete, quad set 5 sec hold x5, SAQ x5, Supine>sitting SBA with HOB flat, LAQ x5, sit > stand CGA with fWW, ambulated w/ FWW CGA to bathroom to void in standing FWW for support CGA, stable balance. Pt ambulated to sink using FWW CGA with cuing for improved R knee flexion and heel toe quality gait. Stationary standing at sink close SBA with contact sink as needed while washing hands. Pt ambulated further into hallway usign fWW close SBA w/c follow secondary to decreased activity tolerance, agreed to sitting rest into w/c approx 90 ft distance BUE /BUE tiring . Wheeled patient to stairs, then ascend/descend 9 stairs using BHR step to patterning CGA, tolerated assimulation of 1 of 2 flight of stairs has at home indoors. Pt was able to walk further in hallway stairs to room approx 227 ft using FWW with improvement in foot clearance and stride with cuing, pt complete 3 stopped stand rests and w/c follow but declined use wanting to walk the distance to room. Pt SPT using FWW good positioning and backed up to chair, BUE transition with good slow descent into chair. Pt had chair alarm on, reclined and all needs in reach. Pt reported will try some LE exercises while sitting in chair. Pt would benefit from continued acute PT to progress in strength for distance gait and stair mgt to allow for distance ramp off boat at home to house and 18 stair mgt has at home. Pt demonstrated improvement in safety FWW postioning this am. Will continue to assess progress for safe DC SNF vs. home with assist of . Pt has a personal FWW that doesn't stay locked open, would like to us to place orders and dispense a new FWW for safety use at home. Gait Assessment Gait Gait Assistance Required: Contact Guard Assist,1 Person Assist Distance (Feet) 227 Able to Maintain Weight Bearing Status Yes During Gait Assistive Devices Assistive Device Gait Belt,Front Wheeled Walker Orthotic/Prosthetic Devices or Brace: No Gait Deviations General Gait Pattern Antalgic,Decreased Stride Length,Decreased Feet Clearance,Step-to Gait Factors Limiting Gait Function Factors Limiting Gait Function Decreased Activity Tolerance, Decreased Strength,Difficulty Following Directions,Pain,Poor Balance,Poor Safety Awareness Comments Gait Comments Pt unsteady gait intially but improved with cuing for body closer and slower FWW positioning, better as tx progressed. Stair Climbing Assessment Evaluation Level of Assist On Stairs Contact Guard Assistance,1 Person Assistance Devices Stair Climbing Assistive Devices Left Railing,Right Railing Technique/Endurance Stair Climbing Direction Ascend and Descend Stair Climbing Technique Step to Step Number of Steps Climbed 3 Stair Climbing Set # Repetitions (reps) 3 Comments Stair Climbing Comments Completed 11/09 stairs has inside home BHR. PT-Balance Assessment Sitting Balance and Reactions Static Sitting Balance Ability Good Dynamic Sitting Balance Ability Good Standing Balance and Reactions Static Standing Balance Ability Fair Dynamic Standing Balance Ability Fair Device Used FWW M5 PT-IP Objective Assessments Start: 10/17/19 12:10 Freq: NEEDED Status: Active Protocol: Document 10/17/19 09:18 AB (Rec: 10/17/19 12:29 AB [id number]) Orientation Orientation/Cognition Level of Alertness Alert Safety Awareness Decreased Safety Awareness Gross Range of Motion Lower Extremity ROM Assessment Right Impaired Impairments R knee flexion: ~ 70 deg extension: 10 deg less of neutral 0 Strength Lower Extremity Strength Assessment Right Impaired Hip 4-/5 Knee 3+/5 Sensation Assessment Sensation Gross Sensation WNL Muscle Tone Muscle Tone WNL Yes M6 PT-IP Treatment Start: 10/17/19 12:10 Freq: NEEDED Status: Active Protocol: Document 10/18/19 10:18 SP (Rec: 10/18/19 13:30 SP [email or web address]) Physical Therapy Treatment Exercises Exercises Ankle Pumps,Quad Sets,Heel Slides,Short Arc Quads,Seated Knee Flexion/Extension Education Education Provided Precautions,Weight Bearing Status,Post-Op Packet,Safety Other Treatments Other Treatment Performed See mobility comments for details. M7 PT-IP Assessment and Plan Start: 10/17/19 12:10 Freq: NEEDED Status: Active Protocol: Document 10/18/19 10:18 SP (Rec: 10/18/19 13:30 SP [email or web address]) PT Summary Assessment and Plan Potential Rehabilitation Potential Good Status of Condition at Evaluation Evolving Summary Impairments Pain,ROM,Strength,Balance, Coordination,Sensation,Tone, Cognition,Bed Mobility, Transfers,Gait,Activity Tolerance Progress Towards Goals Slow Progress due to Pain,Slow Progress due to Activity Tolerance Assessment Summary pt requiring CGA with mobility improving in activity tolerance, occasional decrease safety awareness affecting mobility independence. Continuing to assess SNF rehab vs home with 24/7 assist at this time. Goals Bed Mobility Goal Independent Transfer Goal Standby Assistance,Front Wheeled Walker Gait Goal Standby Assistance,Front Wheel Walker Gait Distance 200 Other Goals up/down 18 steps B rails SBA Days to Meet Goals 5 Frequency of Treatment Frequency Of Treatment Twice a Day Treatment Plan Physical Therapy Treatment Plan Bed Mobility Training,Transfer Training,Gait Training, Therapeutic Exercise,Balance Retraining,Post Op Education, Discharge Planning,Hot or Cold Pack,Neuromuscular Re-ed, Coordination Retraining,Manual Therapy Other Recommendations and Next Treatment ambulation, stair climbing Focus Recommendations To Nursing Amount of Assist Needed 1 Person Assist Discharge Recommendations PT Discharge Recommendations Home with 24 Assist,Home Health,SNF Rehab Other Discharge Recommendations SNF vs home with assist and outpt PT Equipment Needed for Home Before FWW if pt goes home (personal Discharge one not safe) Transportation Needs at Discharge Private Vehicle,Wheelchair/ Cabulance
[2019-10-18 11:43] VITALS: BP 98/57; PULSE 90; RESP 16; TEMP 37.1; O2SAT 96
[2019-10-18] MEDS: SODIUM CHLORIDE 0.9% FLUSH 10 ML IV ×2 (11:43→20:51)
--- NOTE | 2019-10-18 15:39 | PT.IPTN ---
Current Diagnoses Unilateral primary osteoarthritis, left knee (10/17/19) Surgery Performed Operation Date: 10/16/19 12:15 Actual Procedures p Total Knee Arthroplasty(Right) - Gordy Lora MD Physical Therapy Treatment Note M2 PT-IP Current Condition Start: 10/17/19 12:10 Freq: NEEDED Status: Active Protocol: Document 10/17/19 09:18 AB (Rec: 10/17/19 12:29 AB [id number]) Physical Therapy Current Condition Current Condition Evaluation Date 10/17/19 Treatment Diagnosis s/p R TKA; difficulty in walking Onset Date 10/16/19 Weight Bearing Status Weight Bearing Status Weight Bear as Tolerated Allowed Weight Bearing Amount (enter % RLE: WBAT or #) (%) M3 PT-IP Subjective Start: 10/17/19 12:10 Freq: NEEDED Status: Active Protocol: Document 10/18/19 15:14 SP (Rec: 10/18/19 16:29 SP [email or web address]) Subjective Physical Therapy Visit Type Type Treatment Note Visit Start Time 15:14 Visit Stop Time 15:39 Total Visit Minutes 25 Number of CHIEF OPTOMETRY SERVICE Visits 2 Physical Therapy Visit Comments Patient Comments Pt willing to work with therapy. Patient Goals Pt is hoping to DC home with to help him. Therapy Pain Assessment Pain When Pain Assessed During Mobility Pain Present Pain Present Pain Reported Location rt knee Intensity 4 Scale Used 1-2/10 at rest,4/10 with mobility Pain Behaviors Restlessness Pain Management Techniques Apply Cold,Re-positioning, Timing of Activity with Medications M4 PT-IP Mobility and Gait Start: 10/17/19 12:10 Freq: NEEDED Status: Active Protocol: Document 10/18/19 15:14 SP (Rec: 10/18/19 16:29 SP [email or web address]) PT-Bed Mobility Assessment Supine to Sit Supine to Sit Standby Assistance Sit to Supine Sit to Supine Standby Assistance Scooting Scooting to Edge of Bed Standby Assistance PT-Transfer Assessment Sit to and From Stand Sit to and from Stand Standby Assistance,Use of Upper Extremities Equipment Transfer Assistive Device Gait Belt,Front Wheeled Walker Orthotic/Prosthetic Devices or Brace: No Transfers Transfer Destination Bed Transfer Technique ambulated using FWW Transfer Ability Level of Assist Standby Assistance,Use of Upper Extremities Comments Mobility Comments Pt was supine resting when arrived. Pt reported got some medications for pain not long ago, 1-2/10 pain R knee. Pt reported has been doing his exercises in bed since left: heel slides using gait belt for support. Pt able to complete supine<>sitting SBA with HOB flat with no support to RLE needed. Sit <>stand SBA using proper safety BUE for support while using FWW once standing. Pt ambulated further distance using FWW into hallway approx 500ft SBA with Minimal cuing for proper R knee flexion, heel toe quality toward normal stance phases. Pt required 4 stop brief rest standing breaks during distance for tiring recovery and BUE rest, w/c follow but not wanted. Pt returned to bed once getting back to the room , bed alarmed and all needs including call light in reach. Provided cold pack for assist pain control. CHIEF OPTOMETRY SERVICE Gait Assessment Gait Gait Assistance Required: Standby Assistance Distance (Feet) 500 Able to Maintain Weight Bearing Status Yes During Gait Assistive Devices Assistive Device Gait Belt,Front Wheeled Walker Orthotic/Prosthetic Devices or Brace: No Gait Deviations General Gait Pattern Antalgic,Decreased Stride Length,Decreased Feet Clearance,Step-to Gait Factors Limiting Gait Function Factors Limiting Gait Function Decreased Activity Tolerance, Decreased Strength,Limited Range of Motion,Pain Comments Gait Comments See mobility comment for details. Stair Climbing Assessment Comments Stair Climbing Comments not assessed in pm tired from am tx. Reassessed tomorrow am 18 stairs BHR to assimulate home with landing between 2 9 stair flights. PT-Balance Assessment Sitting Balance and Reactions Static Sitting Balance Ability Normal Dynamic Sitting Balance Ability Good Standing Balance and Reactions Static Standing Balance Ability Good Dynamic Standing Balance Ability Fair Device Used FWW M5 PT-IP Objective Assessments Start: 10/17/19 12:10 Freq: NEEDED Status: Active Protocol: Document 10/17/19 09:18 AB (Rec: 10/17/19 12:29 AB [id number]) Orientation Orientation/Cognition Level of Alertness Alert Safety Awareness Decreased Safety Awareness Gross Range of Motion Lower Extremity ROM Assessment Right Impaired Impairments R knee flexion: ~ 70 deg extension: 10 deg less of neutral 0 Strength Lower Extremity Strength Assessment Right Impaired Hip 4-/5 Knee 3+/5 Sensation Assessment Sensation Gross Sensation WNL Muscle Tone Muscle Tone WNL Yes M6 PT-IP Treatment Start: 10/17/19 12:10 Freq: NEEDED Status: Active Protocol: Document 10/18/19 15:14 SP (Rec: 10/18/19 16:29 SP [email or web address]) Physical Therapy Treatment Education Education Provided Precautions,Post-Op Packet, Safety M7 PT-IP Assessment and Plan Start: 10/17/19 12:10 Freq: NEEDED Status: Active Protocol: Document 10/18/19 15:14 SP (Rec: 10/18/19 16:29 SP [email or web address]) PT Summary Assessment and Plan Potential Rehabilitation Potential Good Status of Condition at Evaluation Evolving Summary Impairments Pain,ROM,Strength,Balance, Coordination,Sensation,Tone, Cognition,Bed Mobility, Transfers,Gait,Activity Tolerance Progress Towards Goals Progressing Toward Goals,Slow Progress due to Pain,Slow Progress due to Activity Tolerance Assessment Summary Pt requiring SBA during all mobility, using FWW during gait with improved activity tolerance. Pt has good safety awareness with proper hand placement and fWW positioning. Pt to tired to complete full 18 stair mgt in pm will reassess in am. Pt's hasn 't been able to acquire FWW for home due unsafe of personal here not locking stable open during use, pt and would like PT to dispense new FWW upon DC for safety home use. Pt's willing to get a ride here in am approx 0930 to complete caregiver training before 12 if knows if DC planned for tomorrow [employer]IEF OPTOMETRY SERVICE discussed with nursing staff to call if stable to DC tomorrow am before 9am to plan transportation. PT recommending home with assist of and out pt therapy to improve ROM, strength toward increase functional independence with LRAD when medically stable. Goals Bed Mobility Goal Independent Transfer Goal Standby Assistance,Front Wheeled Walker Gait Goal Standby Assistance,Front Wheel Walker Gait Distance 200 Other Goals up/down 18 steps B rails SBA Days to Meet Goals 5 Frequency of Treatment Frequency Of Treatment Twice a Day Treatment Plan Physical Therapy Treatment Plan Bed Mobility Training,Transfer Training,Gait Training, Therapeutic Exercise,Balance Retraining,Post Op Education, Discharge Planning,Hot or Cold Pack,Neuromuscular Re-ed, Coordination Retraining,Manual Therapy Other Recommendations and Next Treatment ambulation, stair climbing 18 Focus stairs BHR to assimulate home to 2nd floor. Recommendations To Nursing Amount of Assist Needed 1 Person Assist Discharge Recommendations PT Discharge Recommendations Home with Assistance, Outpatient PT Other Discharge Recommendations Pt's willing to get a ride here in am 10/19/19 approx 0930 to complete caregiver training before 12 if knows if DC planned for tomorrow. [employer]IEF OPTOMETRY SERVICE discussed with nursing staff to call [phone] if stable to DC tomorrow am before 9am to plan transportation. Equipment Needed for Home Before Orders and Dispense new FWW Discharge for home use prior to DC. Transportation Needs at Discharge Private Vehicle,Wheelchair/ Cabulance
[2019-10-18 16:30] VITALS: BP 132/70; PULSE 78; RESP 18; TEMP 36.7; O2SAT 95
[2019-10-18 19:50] VITALS: BP 130/60; PULSE 76; RESP 18; TEMP 37
[2019-10-18] MEDS: SIMVASTATIN 40 MG TABLET 80 MG PO (20:52)
[2019-10-19 00:10] VITALS: BP 119/45; PULSE 73; RESP 18; TEMP 36.6; O2SAT 97
--- NOTE | 2019-10-19 00:57 | PC.NURSE ---
Addendum entered by Ira Barajas R.N. 10/19/19 01:49: Per afternoon shift, call pt's before 9AM to coordinate transportation home if stable to DC on 10/18. Pt has complicated transportation needs = lives on [facility]. Original Note: Pt refusing SCD's despite education. Advised pt to move toes, feet, legs as much as possible while awake. Pt stated understanding.
[2019-10-19] MEDS: IBUPROFEN 400 MG TABLET PO ×4 (01:25→13:25)
[2019-10-19 04:00] VITALS: BP 153/64; PULSE 78; RESP 18; TEMP 36.6; O2SAT 97
[2019-10-19 08:00] VITALS: BP 144/69; PULSE 90; RESP 15; TEMP 36.8; O2SAT 95
--- NOTE | 2019-10-19 08:19 | PC.NURSE ---
Assess- Patient is A&Ox3, his r.knee dressing is cdi with aquacel dressing and jeyson wrap. He is a 1 person assist with walker to get up and ambulate. He will be working with physical therapy this am and his will be coming from [facility] for career technology teacher training. Patient eating his breakfast, float Rn to give him his medication now. He is doing well this am and voices no complaints.
[2019-10-19] MEDS: ACETAMINOPHEN 325 MG TABLET 650 MG PO (08:24)
[2019-10-19] MEDS: HYDROMORPHONE 2 MG TABLET PO ×2 (08:24→13:25)
[2019-10-19] MEDS: DOCUSATE 100 MG CAPSULE PO (08:25)
[2019-10-19] MEDS: SODIUM CHLORIDE 0.9% FLUSH 10 ML IV (08:26)
[2019-10-19] MEDS: ASPIRIN EC 81 MG TABLET PO (08:26)
[2019-10-19] MEDS: lisinopriL 10 MG TABLET PO (08:26)
[2019-10-19] MEDS: TAMSULOSIN 0.4 MG CAPSULE PO (08:26)
--- NOTE | 2019-10-19 11:22 | PM.DS.1 ---
History of Present Illness History of Present Illness Date Patient Seen: 10/19/19 Time Patient Seen: 11:22 Chief complaint: RT TKA Narrative: Patient's pain is been moderate to severe. No fever chills. No nausea vomiting. Patient has is home to assist him. Patient wishes to be discharged home today. Patient has done well with physical therapy. Otherwise without complaints. Discharge Providers Provider Date of admission: 10/17/19 14:56 Discharge Date: 10/19/19 Primary care physician: Ab Morrissey MD Consults: 10/16/19 15:03 Consult to Discharge Planning Routine Comment: Consult to Physical Therapy Evaluate & Treat Comment: Physician Instructions: postop TKA protocol Consult to Respiratory Therapy Evaluate & Treat Comment: Physician Instructions: Evaluate and treat Discharge provider: Rome Sierra PA-C Summary Hospital Course Discharge Diagnosis: Right knee OA Hospital Course: Procedure: Right total knee arthroplasty Same procedure as scheduled: Yes Indications: The patient presents today for total knee arthroplasty after failure of conservative treatment. The nature of the procedure including the risks and benefits, alternatives, postoperative course and expected outcome were discussed and all questions answered. Consent was obtained. Operative site confirmed and marked. Surgeon: Gordy Lora Thermostat Machine Tender: Rome Sierra Anesthesia Type: General, Spinal, Peripheral nerve block and Local Operative Notes Closure Type: primary Specimen(s): none sent Prosthetic devices, grafts, tissues, transplants, or devices: Lux and Nephew Ant BCS: 7 femoral component, 6 tibial component, 9 mm BCS polyethylene tray and 32 x 9 mm round patella Applied: implant(s) Estimated Blood Loss (mL): 5 Blood products transfused: none Tourniquet time (min): 50 Patient admitted to the hospital for right total knee arthroplasty. Patient consented to the same. Patient taken to the operating room on October 16, 2019. Patient underwent right total knee arthroplasty. Patient back in his room recovering well and has remained in stable condition. Patient mobilizing with physical therapy will be discharged home today. Status at Discharge Cognitive/behavioral status at discharge: at baseline, oriented Functional status at discharge: uses cane/walker Overall status at discharge: patient is progressing back to baseline Time Spent with Patient Time spent: Less than 30 minutes Exam Vital Signs (past 8 hours): - 10/19/19 04:00 10/19/19 08:00 Temperature 97.8 F 98.2 F Pulse Rate 78 90 Respiratory Rate 18 15 Blood Pressure 153/64 H 144/69 H Pulse Oximetry 97 95 Oxygen Delivery Method Room Air Oxygen Flow Rate 0 Narrative Exam Narrative: Resting comfortably in bed in no apparent distress. Right knee dressing is clean, dry and intact. Right leg is warm and dry. Motor functions intact distal right lower extremity. Sensation grossly intact to light touch distal right lower extremity. Objective Labs Result Diagrams: 10/17/19 04:52 Discharge Assessment & Plan Assessment and Plan Assessment: Postop day 3. Status post right total knee arthroplasty. DC home today. Discharge Plan Discharge Plan Patient Disposition: Home Discharge orders & Medications Prescriptions: New aspirin 81 mg Tablet,Delayed Release (Dr/Ec) 81 mg PO BID Qty: 60 RF: 0 hydromorphone 2 mg Tablet 2 mg PO Q3H PRN (Reason: Pain, Severe (7-10)) Qty: 30 RF: 0 docusate sodium [DOK] 100 mg Capsule 100 mg PO BID Qty: 20 RF: 0 oxycodone 5 mg Tablet 5 mg PO Q3HR PRN (Reason: Pain, Moderate (4-6)) Qty: 40 RF: 0 hydroxyzine pamoate 25 mg Capsule 25 mg PO Q6HR PRN (Reason: Nausea) Qty: 30 RF: 0 Continued fluticasone propionate 16 GM spray,suspension 0.05 mg INH QDAY Qty: 1 RF: 5 lisinopril 10 mg tablet See Rx Instructions .ROUTE .COMPLEX Qty: 90 RF: 1 simvastatin 80 mg tablet See Rx Instructions .ROUTE .COMPLEX Qty: 90 RF: 1 tamsulosin 0.4 mg capsule See Rx Instructions .ROUTE .COMPLEX Qty: 180 RF: 1 fexofenadine [Aller-Fex] 180 mg Tablet 180 mg PO DAILY RF: 0 naproxen sodium [Aleve] 220 mg Capsule 440 mg PO BID RF: 0 acetaminophen [Tylenol] 325 mg Tablet 650 mg PO Q4H PRN (Reason: Pain (Scale Score 1-3)) RF: 0 Follow up/Referrals: Ab Morrissey MD [Primary Care Provider] - Gordy Lora MD [Physician] - 2 Weeks Discharge Health Status Multidrug resistant organism: No MDRO Diet/Activity/Treatments Diet: Regular Activity: Progress weight-bearing and activity as tolerated. Daily knee range of motion exercises. Cold/Heat Therapy: May use ice for 20 minutes at a time as needed for pain. Other treatments: Use ibuprofen 400 mg and Tylenol 500 mg every 4 hours along with prescription pain medication. Skin/Wound/Dressing Care Report to your healthcare provider any signs of infection, such as:: chills, fever, increased pain, unusual drainage and unusual redness Dressing: May leave dressing on until follow-up. May shower over the dressing. Visit Report/Discharge Packet Instructions: DI for Knee Replacement, How to Prevent Falls, DI for Postoperative Pain, DI for Prescription Opioid Use Visit Report Forms: Stroke Signs & Symptoms Discharge Data Primary Care Provider: Ab Morrissey VTE Deep Vein Thrombosis/Pulmonary Embolism Present on Admission: No
--- NOTE | 2019-10-19 11:27 | PT.IPTN ---
Current Diagnoses Unilateral primary osteoarthritis, left knee (10/17/19) Surgery Performed Operation Date: 10/16/19 12:15 Actual Procedures p Total Knee Arthroplasty(Right) - Gordy Lora MD Physical Therapy Treatment Note M2 PT-IP Current Condition Start: 10/17/19 12:10 Freq: NEEDED Status: Active Protocol: Document 10/17/19 09:18 AB (Rec: 10/17/19 12:29 AB [id number]) Physical Therapy Current Condition Current Condition Evaluation Date 10/17/19 Treatment Diagnosis s/p R TKA; difficulty in walking Onset Date 10/16/19 Weight Bearing Status Weight Bearing Status Weight Bear as Tolerated Allowed Weight Bearing Amount (enter % RLE: WBAT or #) (%) M3 PT-IP Subjective Start: 10/17/19 12:10 Freq: NEEDED Status: Active Protocol: Document 10/19/19 10:46 KS (Rec: 10/19/19 13:32 KS [id number]) Subjective Physical Therapy Visit Type Type Treatment Note Visit Start Time 10:46 Visit Stop Time 11:27 Total Visit Minutes 41 Notes Pt present for caregiver training. Number of MANUFACTURING ENGINEER CHIEF Visits 3 Physical Therapy Visit Comments Patient Comments Pt willing to work with therapy. Patient Goals Pt is hoping to DC home with to help him. Therapy Pain Assessment Pain When Pain Assessed During Mobility Pain Present Pain Present Pain Reported Location rt knee Intensity 4 Scale Used 1-2/10 at rest,4/10 with mobility Pain Behaviors Restlessness Pain Management Techniques Elevation,Re-positioning, Timing of Activity with Medications M4 PT-IP Mobility and Gait Start: 10/17/19 12:10 Freq: NEEDED Status: Active Protocol: Document 10/19/19 10:46 KS (Rec: 10/19/19 13:32 KS [id number]) PT-Bed Mobility Assessment Supine to Sit Supine to Sit Standby Assistance Sit to Supine Sit to Supine Standby Assistance Scooting Scooting to Edge of Bed Standby Assistance PT-Transfer Assessment Sit to and From Stand Sit to and from Stand Standby Assistance,Use of Upper Extremities Equipment Transfer Assistive Device Gait Belt,Front Wheeled Walker Orthotic/Prosthetic Devices or Brace: No Transfers Transfer Destination Bed Transfer Technique ambulated using FWW Transfer Ability Level of Assist Standby Assistance,Use of Upper Extremities Comments Mobility Comments Pt was in bed upon arrival from therapy w/ in room. Pt SBA for sup<>sit and scooting EOB. Demonstrated to application of gait belt. Pt then sit<>stand w/ FWW SBA and ambulated ~220 ft to stairs w/ FWW and CGA provided safely and appropriately by pts . Pt then completed 9 total steps w/ BHR and CGA provided by pts . Pt needed 1x cues for sequencing. Pt and state they have a chair already set up for pt to rest on stair landing after 9 steps. Pt and state they feel safe to perform steps at home. Pt then ambulated additional ~220 ft back to room w/ CGA provided by . Pt then returned to bed SBA. Dispensed FWW for pt at home use and reviewed LE strengthening and ROM exercises, which pt tolerated and understood well. Pt left in bed w/ all needs in reach. Gait Assessment Gait Gait Assistance Required: Standby Assistance,Contact Guard Assist,1 Person Assist Distance (Feet) 500 Able to Maintain Weight Bearing Status Yes During Gait Assistive Devices Assistive Device Gait Belt,Front Wheeled Walker Orthotic/Prosthetic Devices or Brace: No Gait Deviations General Gait Pattern Antalgic,Decreased Stride Length,Decreased Feet Clearance,Step-to Gait Factors Limiting Gait Function Factors Limiting Gait Function Decreased Activity Tolerance, Decreased Strength,Limited Range of Motion,Pain Comments Gait Comments Pt ambulated ~500 total ft w/ FWW and CGA provided safely by pts . Pt needed min cues for upright posture, but demonstrated good use of FWW and has good safety awareness. Stair Climbing Assessment Evaluation Level of Assist On Stairs Contact Guard Assistance,1 Person Assistance Devices Stair Climbing Assistive Devices Left Railing,Right Railing Technique/Endurance Stair Climbing Direction Ascend and Descend Stair Climbing Technique Step to Step Number of Steps Climbed 3 Stair Climbing Set # Repetitions (reps) 3 Comments Stair Climbing Comments Pt ascended/descended 9 steps total w/ BHR and CGA provided correctly by pts . Pt denied fatigue after performing steps but appeared slightly SOB. Pt and state they have a chair set up on landing after 9 steps for pt to rest before ascending additional 9 steps. Pt and state they feel safe to perform steps at home. PT-Balance Assessment Sitting Balance and Reactions Static Sitting Balance Ability Normal Dynamic Sitting Balance Ability Good Standing Balance and Reactions Static Standing Balance Ability Good Dynamic Standing Balance Ability Fair Device Used FWW M5 PT-IP Objective Assessments Start: 10/17/19 12:10 Freq: NEEDED Status: Active Protocol: Document 10/17/19 09:18 AB (Rec: 10/17/19 12:29 AB [id number]) Orientation Orientation/Cognition Level of Alertness Alert Safety Awareness Decreased Safety Awareness Gross Range of Motion Lower Extremity ROM Assessment Right Impaired Impairments R knee flexion: ~ 70 deg extension: 10 deg less of neutral 0 Strength Lower Extremity Strength Assessment Right Impaired Hip 4-/5 Knee 3+/5 Sensation Assessment Sensation Gross Sensation WNL Muscle Tone Muscle Tone WNL Yes M6 PT-IP Treatment Start: 10/17/19 12:10 Freq: NEEDED Status: Active Protocol: Document 10/19/19 10:46 KS (Rec: 10/19/19 13:32 KS [id number]) Physical Therapy Treatment Exercises Exercises Ankle Pumps,Gluteal Sets,Quad Sets,Heel Slides,Short Arc Quads,Seated Knee Flexion/ Extension Education Education Provided Precautions,Post-Op Packet, Safety Other Treatments Other Treatment Performed Completed caregiver training and dispensed FWW. Reviewed exercises for strengthening and ROM. M7 PT-IP Assessment and Plan Start: 10/17/19 12:10 Freq: NEEDED Status: Active Protocol: Document 10/19/19 10:46 KS (Rec: 10/19/19 13:32 KS [id number]) PT Summary Assessment and Plan Potential Rehabilitation Potential Good Status of Condition at Evaluation Evolving Summary Impairments Pain,ROM,Strength,Balance, Coordination,Sensation,Tone, Cognition,Bed Mobility, Transfers,Gait,Activity Tolerance Progress Towards Goals Progressing Toward Goals Assessment Summary Pt is SBA for bed mobility and transfers and CGA for ambulation w/ FWW and stair training. Completed caregiver training w/ pts who was able to provided appropriate assist and cues as needed. Pt ambulated ~500 ft total w/ FWW and completed 9 steps w/ BHR both w/ CGA by . Pt will not be participating in outpatient rehab because they do not have access to it on [facility], however pt and his have very good awareness of strengthening and ROM exercises and pt agreed to complete several times per day. Pt stated he has stationary bike at home which he plans on using when appropriate. Pt and his have a well thought out plan for transport back to [facility] and neighbors who will help them navigate transfers and stairs as needed. Pts also set up chair on landing of stairs so pt may rest before completing remaining 9 steps. Dispensed FWW for pts home use. Pt and state they feel safe to go home and agree to complete LE exercises throughout day. Goals Bed Mobility Goal Independent Transfer Goal Standby Assistance,Front Wheeled Walker Gait Goal Standby Assistance,Front Wheel Walker Gait Distance 200 Other Goals up/down 18 steps B rails SBA Days to Meet Goals 5 Frequency of Treatment Frequency Of Treatment Twice a Day Treatment Plan Physical Therapy Treatment Plan Bed Mobility Training,Transfer Training,Gait Training, Therapeutic Exercise,Balance Retraining,Post Op Education, Discharge Planning,Hot or Cold Pack,Neuromuscular Re-ed, Coordination Retraining,Manual Therapy Other Recommendations and Next Treatment ambulation, stair climbing 18 Focus stairs BHR to assimulate home to 2nd floor. Recommendations To Nursing Amount of Assist Needed 1 Person Assist Discharge Recommendations PT Discharge Recommendations Home with Assistance, Outpatient PT Transportation Needs at Discharge Private Vehicle,Wheelchair/ Cabulance
[2019-10-19 11:44] VITALS: BP 114/60; PULSE 89; RESP 16; TEMP 36.6; O2SAT 95
== END 2019-10-19 13:50 | disposition home or self-care (01) | DRG 470 ==
LOC: OR 15:38 → AC 15:39
PROVIDERS: Admitting Provider Orthopaedic Surgery; PCP Family Medicine; Referring Provider Family Medicine; Visit Provider Orthopaedic Surgery
PROC: 0SRC0JZ Replacement of Right Knee Joint with Synthetic Substitute, Open Approach (ICD-10-PCS; CPT 27447; principal; 2019-10-16 12:15)
DX: M17.11 Unilateral primary osteoarthritis, right knee (principal); I10 Essential (primary) hypertension; G89.18 Other acute postprocedural pain
CPT/HCPCS: 36415; 73560; 85014; 85018; 97110; 97116; 97162; 97530; C1776; C9290; J0690; J1170; J2250; J2704; J3010

== ENCOUNTER → 2020-02-01 12:03 | Outpatient (CLI) | payer MEDICARE, SELFPAY ==
[2019-10-16 15:35] VITALS: BMI 25.7
[2020-02-01 12:54] LABS: Add Manual Diff / Slide Review NO; Basophils Absolute Auto 0 /uL (0-100); Basophils Percent Auto 0.7 % (0-2); Eosinophils Absolute Auto 200 /uL (0-450); Eosinophils Percent Auto 3.3 % (2-4); Hematocrit 40.5 % (41-53); Hemoglobin 13.6 g/dL (13.5-17.5); Lymphocytes Absolute Auto 1400 /uL (1100-4500); Mean Corpuscular HGB Conc 33.5 % (30-36); Mean Corpuscular Hemoglobin 30.9 PG (26-34); Mean Corpuscular Volume 92.2 fL (80-100); Monocytes Absolute Auto 600 /uL (0-900); Monocytes Percent Auto 9.6 % (3-14); Neutrophils Absolute Auto 4200 /uL (1500-7000); Neutrophils Percent Auto 65.4 % (50-75); Platelet Count 200 X10^3/uL (150-400); Red Blood Cell Count 4.39 X10^6/uL (4.5-5.9); Red Cell Distribution Width 14.5 % (11.6-14.8); White Blood Cell Count 6.4 X10^3/uL (4.5-11.0)
[2020-02-01 13:12] LABS: Alanine Aminotransferase 49 IU/L (<50); Albumin 4.4 g/dL (3.5-5.0); Albumin Globulin Ratio 1.3 (1.0-2.8); Alkaline Phosphatase 136 U/L (38-126); Aspartate Aminotransferase 41 IU/L (17-59); BUN Creatinine Ratio 35.9 (6-22); Bilirubin Total 0.3 mg/dL (0.2-1.3); Blood Urea Nitrogen 33 mg/dL (9-20); Calcium 10.9 mg/dL (8.4-10.2); Carbon Dioxide 27 mmol/L (22-32); Chloride 107 mmol/L (98-107); Cholesterol 225 mg/dL (140-199); Estimated Glomerular Filt Rate > 60.0 mL/min (>60); Globulin 3.5 g/dL (1.7-4.1); Glucose 111 mg/dL (80-110); HDL Cholesterol 65 mg/dL (40-60); HEMOLYSIS < 15 (0-50); LDL Cholesterol Calculated 117 mg/dL (<100); Potassium 4.8 mmol/L (3.4-5.1); Sodium 140 mmol/L (137-145); Total Protein 7.9 g/dL (6.3-8.2); Triglycerides 213 mg/dL (35-150)
[2020-02-01 13:42] LABS: Prostate Specific Antigen Scrn 2.75 ng/mL (0.1-4.0)
== END ==
PROVIDERS: PCP Family Medicine; Referring Provider Family Medicine; Visit Provider Family Medicine
DX: E78.2 Mixed hyperlipidemia (principal); Z12.5 Encounter for screening for malignant neoplasm of prostate
CPT/HCPCS: 36415; 80053; 80061; 85025; G0103

== ENCOUNTER 2020-05-17 10:03 | Emergency (ER) | payer MEDICARE, SELFPAY ==
[2019-10-16 15:35] VITALS: BMI 25.7
[2020-05-17] VITALS (8 sets, daily range): BP systolic 134–205; BP diastolic 63–83; PULSE 58–76; RESP 18; TEMP 36.3; O2SAT 96–100; BMI 27.1
--- NOTE | 2020-05-17 10:32 | ED_ITS ---
HPI - Male Genitourinary General Chief complaint: Urogenital-Male Stated complaint: Thinks he's Passing a kidney stone Time Seen by Provider: 05/17/20 10:31 Source: patient Mode of arrival: Family Vehicle Limitations: no limitations History of Present Illness HPI Narrative: This is an 79-year-old male who comes emergency department with complaint of sudden onset acute left flank pain that started early this morning. Patient is unsure if he was already awake or if it woke him from sleep. He states he rolled to his side and had sudden discomfort. Patient states sort of the left flank side. It does not radiate up into his chest. Does not go to his front or testicles. Patient denies any fevers or no nausea or vomiting. No shortness of breath. He denies any other chest pain or pressure. Patient states he has had normal bowel movements. He has not appreciated any hematuria, dysuria or other urinary symptoms. Patient states the location of the pain has not changed. He states he takes medication for hypertension and dyslipidemia and daily tablet Flomax. He has had multiple orthopedic surgeries but denies any intra-abdominal surgeries. Patient comes in by his . They both state he was hypertensive this morning he was in significant discomfort. He tried Aleve with minimal improvement and then took a 2 mg tablet of dilaudid he had at home left over from prior orthopedic surgery which has been helpful for his pain. He lives on [facility] and Dr. Duarte is his PCP. Related Data Home Medications Medication Instructions Recorded Confirmed acetaminophen [Tylenol] 650 mg PO Q4H PRN 10/16/19 03/18/20 Previous Rx's Medication Instructions Recorded lisinopril 10 mg tablet 10 mg PO DAILY #90 tab 03/18/20 simvastatin 80 mg tablet 80 mg PO DAILY #90 tab 03/18/20 tamsulosin 0.4 mg capsule 0.4 mg PO BID #180 cap 03/18/20 Allergies Allergy/AdvReac Type Severity Reaction Status Date / Time No Known Drug Allergies Allergy Verified 05/17/20 10:13 Review of Systems Review of Systems ROS Unobtainable: All systems reviewed & are unremarkable except as noted in HPI and below Patient History Medical History Benign prostatic hyperplasia with urinary obstruction (11/13/15) Essential hypertension (01/15/17) Hypercalcemia Melanoma Mixed hyperlipidemia (01/15/17) Osteoarthritis Personal history of colonic polyps Sinus congestion Skin cancer Surgical History H/O arthroscopic knee surgery (~2013) H/O discectomy (~1975) H/O left knee surgery (~2012) History of colonoscopy History of hip replacement (~2004) History of vasectomy Hx of tonsillectomy Status post right knee replacement (~09/2019) Social History household members: spouse Smoking Status: Never smoker alcohol intake: current Smoking Status: Never smoker alcohol intake frequency: 0-2 drinks per day Substance Use Type: does not use Exam Narrative Exam Narrative: GENERAL: Alert and oriented x three, well-nourished elderly male in mild distress. HEENT: Head normocephalic, atraumatic, EOMI, pupils reactive, face symmetric, moist mucous membranes NECK: Supple, full range of motion CARDIOVASCULAR: Regular rate and rhythm without murmurs, rubs or gallops. RESPIRATORY: Breath sounds equal bilaterally, no wheezes rales or rhonchi. ABDOMEN: Soft, nontender. Normoactive bowel sounds all 4 quadrants. No guarding or rebound, rigidity, no mass, no bruit or pulsatile mass. : No CVA tenderness BACK: No cervical, thoracic or lumbar vertebral point tenderness. Patient has normal range of motion. EXTREMITIES: Normal range of motion, no clubbing or edema. Neurovascularly intact NEUROLOGICAL: Cranial nerves II through XII grossly intact. Moving all extremities SKIN: Warm, dry, no petechiae, no rashes or lesions. Initial Vital Signs Initial Vital Signs: Vital Signs Temperature 97.4 F L 05/17/20 10:10 Pulse Rate 76 05/17/20 10:10 Respiratory Rate 18 05/17/20 10:10 Blood Pressure 205/83 H 05/17/20 10:10 Pulse Oximetry 96 05/17/20 10:10 Course Orders Ordered: ED Orders 05/17/20 10:45 Complete Blood Count AUTO DIFF Stat Comprehensive Metabolic Panel Stat Lipase Stat 05/17/20 10:46 CT kidney ureter bladder (KUB) Stat Discontinued Medications Sodium Chloride (Normal Saline 0.9%) 1,000 mls @ 1,000 mls/hr IV BOLUS ONE Stop: 05/17/20 11:44 Last Infusion: 05/17/20 12:36 Dose: 0 mls/hr Documented by: Admin: 05/17/20 11:00 Dose: 1,000 mls/hr Documented by: CYNDY Vital Signs Vital signs: Vital Signs - 8 hr 05/17/20 11:00 05/17/20 11:01 05/17/20 11:30 Pulse Rate 66 62 58 L Blood Pressure 149/66 H 134/63 Pulse Oximetry 100 99 99 05/17/20 12:01 05/17/20 12:30 Pulse Rate 60 63 Blood Pressure 144/67 H 142/77 H Pulse Oximetry 100 100 MDM - Male Genitourinary Lab Data Attestation: I reviewed the patient's lab results. Result diagrams: 05/17/20 10:45 05/17/20 10:45 Labs: Lab Results 05/17/20 05/17/20 Range/Units 10:45 10:45 WBC 6.8 (4.5-11.0) X10^3/uL RBC 4.13 L (4.5-5.9) X10^6/uL Hgb 13.2 L (13.5-17.5) g/dL Hct 39.4 L (41-53) % MCV 95.5 (80-100) fL MCH 31.9 (26-34) PG MCHC 33.4 (30-36) % RDW 13.3 (11.6-14.8) % Plt Count 190 (150-400) X10^3/uL Neut % (Auto) 78.0 H (50-75) % Lymph % (Auto) 13.9 L (25-40) % [place] % (Auto) 6.1 (3-14) % Eos % (Auto) 1.3 L (2-4) % Baso % (Auto) 0.7 (0-2) % Neut # (Auto) 5300 (7940-2942) /uL Lymph # (Auto) 900 L (9086-4825) /uL [place] # (Auto) 400 (0-900) /uL Eos # (Auto) 100 (0-450) /uL Baso # (Auto) 0 (0-100) /uL Sodium 136 L (137-145) mmol/L Potassium 5.1 (3.4-5.1) mmol/L Chloride 105 (98-107) mmol/L Carbon Dioxide 26 (22-32) mmol/L BUN 38 H (9-20) mg/dL Creatinine 0.98 (0.66-1.25) mg/dL Estimated GFR > 60.0 (>60) mL/min BUN/Creatinine Ratio 38.8 H (6-22) Glucose 107 (80-110) mg/dL Calcium 10.4 H (8.4-10.2) mg/dL Total Bilirubin 0.4 (0.2-1.3) mg/dL AST 39 (17-59) IU/L ALT 31 (<50) IU/L Alkaline Phosphatase 118 (38-126) U/L Total Protein 7.4 (6.3-8.2) g/dL Albumin 4.2 (3.5-5.0) g/dL Globulin 3.2 (1.7-4.1) g/dL Albumin/Globulin Ratio 1.3 (1.0-2.8) Lipase 73 (23-300) U/L Urine Dip Bedside Urine Glucose Negative Bedside Urine Bilirubin - Negative Bedside Urine Ketone - Negative Urine Specific [place] 1.025 Bedside Urine Occult Blood - Negative Bedside Urine pH 6.0 Bedside Urine Protein +/- 15 Bedside Urine Nitrite - Negative Bedside Urine Leukocytes - Negative Esterase Imaging Data CT scan - abdomen/pelvis: Radiologist's Impression: [address] [id number] Scan ReportSigned Patient: Rigoberto Boyle PMR#: [id number]: [id number]/Sex: 79 / MDate of Service: 05/17/20Loc: EDAccession Number: [id number] Procedure: CT kidney ureter bladder (KUB) Ordering Provider: Marci Maynard D.O. PROCEDURE: CT KIDNEY URETER BLADDER (KUB) INDICATIONS: left flank pain, ? stone TECHNIQUE: Noncontrast 5 mm thick sections acquired from the diaphragms to the symphysis. 5 mm thick coronal and sagittal reformats were then performed. For radiation dose reduction, the following was used: automated exposure control, adjustment of mA and/or kV according to patient size. COMPARISON: None. FINDINGS: Image quality: Excellent. Lung bases: Lung bases are clear. Heart size is normal. Urinary system: There is no urinary tract calculus demonstrated, with caveat that the bladder is not well evaluated near the ureteral insertions due to streak artifact from bilateral hip arthroplasties. There is no hydroureter or hydronephrosis. Symmetric perinephric fat stranding. Small bilateral renal cysts. Other solid organs: Liver is normal in size. Gallbladder is normal. Pancreas is normal in contours. Spleen is normal in size. No adrenal nodules. Peritoneum and bowel: Unenhanced bowel loops demonstrate normal wall thickness and caliber. No free fluid or air. Nodes and vessels: No retroperitoneal or mesenteric adenopathy by size criteria. Aorta and inferior vena cava are normal in caliber. Abdominal wall: No ventral hernias. Pelvis: No free pelvic fluid. No inguinal hernias or adenopathy. Bones: No suspicious bony lesions. No vertebral body compression fractures. IMPRESSION: No urinary tract calculus or hydroureteronephrosis. Dictated by: Magen De La Torre M.D. on 05/17/2020 at 11:38 Approved by: Magen De La Torre M.D. on 05/17/2020 at 11:41 MDM Narrative Medical decision making narrative: This is an 79-year-old male comes emergency department with acute onset left-sided abdominal/flank pain. Patient states he has not had any other symptoms he does have some increased pain with movement. Not able to reproduce it on examination. CT does not show an obvious ureteral calculus although there is some streak artifact at the UVJ junction and this would potentially be hiding a stone although patient does not have any hematuria on point of care urinalysis. Other acute findings on urinalysis are noted. Steady baseline anemia, so new 136 with elevated BUN. Calciums also elevated at 10.4 with no other acute lab finding changes. Patient was initially hypertensive upon arrival but has improved here in the department without any intervention. Patient does have some pain with movement and discussed this may be musculoskeletal. Return precautions and follow up with PCP for recheck. Discharge Plan Departure Patient Disposition: Home Clinical Impression: Flank pain Instructions: DI for Flank Pain Activity Restrictions/Additional Instructions: Follow up with your physician for recheck. Your imaging today does not show an acute cause of your pain, although there is some streak artifact that may hide a kidney stone although your urine does not show any blood in it today making this less likely. They do note small bilateral renal cysts, let your primary care physician know these are present but they do not require any specific follow-up at this time. Continue home medications as prescribed. Return to the ER for fevers greater 100.4 F, lightheadedness, passing out, new or worsening abdominal, back or flank pain, persistent vomiting, difficulty with urination, black or bloody stools other new or concerning issues. Prescriptions: No Action lisinopril 10 mg tablet 10 mg PO DAILY Qty: 90 RF: 3 simvastatin 80 mg tablet 80 mg PO DAILY Qty: 90 RF: 3 tamsulosin 0.4 mg capsule 0.4 mg PO BID Qty: 180 RF: 3 acetaminophen [Tylenol] 325 mg Tablet 650 mg PO Q4H PRN (Reason: Pain (Scale Score 1-3)) RF: 0 Referrals: Jacques Duarte MD [Primary Care Provider] -
--- NOTE | 2020-05-17 10:46 | DI.CT.S_ITS ---
PROCEDURE: CT KIDNEY URETER BLADDER (KUB) INDICATIONS: left flank pain, ? stone TECHNIQUE: Noncontrast 5 mm thick sections acquired from the diaphragms to the symphysis. 5 mm thick coronal and sagittal reformats were then performed. For radiation dose reduction, the following was used: automated exposure control, adjustment of mA and/or kV according to patient size. COMPARISON: None. FINDINGS: Image quality: Excellent. Lung bases: Lung bases are clear. Heart size is normal. Urinary system: There is no urinary tract calculus demonstrated, with caveat that the bladder is not well evaluated near the ureteral insertions due to streak artifact from bilateral hip arthroplasties. There is no hydroureter or hydronephrosis. Symmetric perinephric fat stranding. Small bilateral renal cysts. Other solid organs: Liver is normal in size. Gallbladder is normal. Pancreas is normal in contours. Spleen is normal in size. No adrenal nodules. Peritoneum and bowel: Unenhanced bowel loops demonstrate normal wall thickness and caliber. No free fluid or air. Nodes and vessels: No retroperitoneal or mesenteric adenopathy by size criteria. Aorta and inferior vena cava are normal in caliber. Abdominal wall: No ventral hernias. Pelvis: No free pelvic fluid. No inguinal hernias or adenopathy. Bones: No suspicious bony lesions. No vertebral body compression fractures. IMPRESSION: No urinary tract calculus or hydroureteronephrosis. Dictated by: Magen De La Torre M.D. on 05/17/2020 at 11:38 Approved by: Magen De La Torre M.D. on 05/17/2020 at 11:41
[2020-05-17 10:53] LABS: Add Manual Diff / Slide Review NO; Basophils Absolute Auto 0 /uL (0-100); Basophils Percent Auto 0.7 % (0-2); Eosinophils Absolute Auto 100 /uL (0-450); Eosinophils Percent Auto 1.3 % (2-4); Hematocrit 39.4 % (41-53); Hemoglobin 13.2 g/dL (13.5-17.5); Lymphocytes Absolute Auto 900 /uL (1100-4500); Lymphocytes Percent Auto 13.9 % (25-40); Mean Corpuscular HGB Conc 33.4 % (30-36); Mean Corpuscular Hemoglobin 31.9 PG (26-34); Mean Corpuscular Volume 95.5 fL (80-100); Monocytes Absolute Auto 400 /uL (0-900); Monocytes Percent Auto 6.1 % (3-14); Neutrophils Absolute Auto 5300 /uL (1500-7000); Platelet Count 190 X10^3/uL (150-400); Red Blood Cell Count 4.13 X10^6/uL (4.5-5.9); Red Cell Distribution Width 13.3 % (11.6-14.8); White Blood Cell Count 6.8 X10^3/uL (4.5-11.0)
[2020-05-17] MEDS: SODIUM CHLORIDE 0.9% 1,000 ML 1000 ML IV (11:00)
[2020-05-17 11:04] LABS: Alanine Aminotransferase 31 IU/L (<50); Albumin 4.2 g/dL (3.5-5.0); Albumin Globulin Ratio 1.3 (1.0-2.8); Alkaline Phosphatase 118 U/L (38-126); Aspartate Aminotransferase 39 IU/L (17-59); BUN Creatinine Ratio 38.8 (6-22); Bilirubin Total 0.4 mg/dL (0.2-1.3); Blood Urea Nitrogen 38 mg/dL (9-20); Calcium 10.4 mg/dL (8.4-10.2); Carbon Dioxide 26 mmol/L (22-32); Chloride 105 mmol/L (98-107); Estimated Glomerular Filt Rate > 60.0 mL/min (>60); Globulin 3.2 g/dL (1.7-4.1); Glucose 107 mg/dL (80-110); HEMOLYSIS 46 (0-50); Lipase 73 U/L (23-300); Potassium 5.1 mmol/L (3.4-5.1); Sodium 136 mmol/L (137-145); Total Protein 7.4 g/dL (6.3-8.2)
== END 2020-05-17 13:11 | disposition home or self-care (01) ==
PROVIDERS: Emergency Provider Emergency Medicine; PCP Internal Medicine
DX: R10.32 Left lower quadrant pain (principal)
CPT/HCPCS: 36415; 74176; 80053; 81003; 83690; 85025; 96360; 99284

== ENCOUNTER → 2020-09-27 09:39 | Outpatient (CLI) | payer MEDICARE, SELFPAY ==
[2019-10-16 15:35] VITALS: BMI 25.7
[2020-09-27 10:34] LABS: Alanine Aminotransferase 46 IU/L (<50); Albumin Globulin Ratio 1.4 (1.0-2.8); Alkaline Phosphatase 144 U/L (38-126); Aspartate Aminotransferase 40 IU/L (17-59); BUN Creatinine Ratio 24.2 (6-22); Bilirubin Total 0.7 mg/dL (0.2-1.3); Blood Urea Nitrogen 29 mg/dL (9-20); Calcium 10.8 mg/dL (8.4-10.2); Carbon Dioxide 23 mmol/L (22-32); Chloride 109 mmol/L (98-107); Cholesterol 202 mg/dL (140-199); Estimated Glomerular Filt Rate 58.1 mL/min (>60); Globulin 2.9 g/dL (1.7-4.1); Glucose 112 mg/dL (80-110); HDL Cholesterol 88 mg/dL (40-60); HEMOLYSIS < 15 (0-50); LDL Cholesterol Calculated 96 mg/dL (<100); Potassium 4.9 mmol/L (3.4-5.1); Sodium 138 mmol/L (137-145); Total Protein 6.9 g/dL (6.3-8.2); Triglycerides 88 mg/dL (35-150)
[2020-09-28 09:18] LABS: Parathyroid Hormone Int 68 pg/mL (15-65)
== END ==
PROVIDERS: PCP Internal Medicine; Referring Provider Internal Medicine; Visit Provider Internal Medicine
DX: E78.2 Mixed hyperlipidemia (principal); E83.52 Hypercalcemia; I10 Essential (primary) hypertension; N13.8 Other obstructive and reflux uropathy; N40.1 Benign prostatic hyperplasia with lower urinary tract symptoms
CPT/HCPCS: 36415; 80053; 80061; 83970

== ENCOUNTER 2020-10-15 11:52 | Emergency (ER) | payer MEDICARE, SELFPAY ==
[2019-10-16 15:35] VITALS: BMI 25.7
[2020-10-15 11:53] VITALS: BP 153/71; PULSE 69; RESP 18; TEMP 36.8; O2SAT 97; BMI 25.7
--- NOTE | 2020-10-15 12:48 | DI.RAD.S_ITS ---
PROCEDURE: XR KNEE LT 1TO2V INDICATIONS: L leg pain, inability to bear weight TECHNIQUE: 3 views of the knee were acquired. COMPARISON: [facility], CR, XR KNEE RT 1TO2V, 10/16/2019, 14:02. FINDINGS: Bones: Scattered degenerative subchondral sclerosis and spurring. No acute fracture identified. Mild narrowing of the lateral joint space. Soft tissues: Scattered vascular calcifications. Small joint effusion. IMPRESSION: Mild joint degeneration, with bulky osteophyte formation. Small joint effusion If the patient's pain or other symptoms persist, consider further evaluation with MRI Dictated by: Cam Park M.D. on 10/15/2020 at 13:58 Approved by: Cam Park M.D. on 10/15/2020 at 14:01
--- NOTE | 2020-10-15 12:48 | DI.RAD.S_ITS ---
PROCEDURE: XR FEMUR LT MIN 2V INDICATIONS: L leg pain TECHNIQUE: 2 views of the femur were acquired. COMPARISON: None. FINDINGS: Bones: No fractures or dislocations. No suspicious bony lesions. Expected alignment of left hip arthroplasty. Hardware appears intact. No evidence of hardware loosening. Soft tissues: Scattered vascular calcifications. IMPRESSION: Expected postoperative alignment of left hip arthroplasty. Dictated by: Cam Park M.D. on 10/15/2020 at 14:01 Approved by: Cam Park M.D. on 10/15/2020 at 14:02
[2020-10-15] MEDS: MORPHINE 4 MG/ML INJ IV (12:58)
--- NOTE | 2020-10-15 13:13 | DI.US.S_ITS ---
PROCEDURE: US PERIPH VENOUS LOW EXTREM LT INDICATIONS: PAIN TECHNIQUE: Real-time imaging, as well as color and pulse Doppler interrogation, were performed of the lower extremity deep veins from the inguinal ligament to the popliteal fossa. COMPARISON: None. FINDINGS: The common femoral, femoral and popliteal veins are normally compressible, and free of intraluminal thrombus. Color and pulse Doppler demonstrate normal phasic intraluminal flow. There is normal augmentation response to distal compression maneuver. IMPRESSION: Negative for deep venous thrombosis. Dictated by: Elkin Fajardo M.D. on 10/15/2020 at 12:27 Approved by: Elkin Fajardo M.D. on 10/15/2020 at 12:28
[2020-10-15] MEDS: CYCLOBENZAPRINE 10 MG TABLET PO (14:29)
[2020-10-15 14:32] VITALS: PULSE 65; O2SAT 97
[2020-10-15] MEDS: IBUPROFEN 400 MG TABLET 600 MG PO (15:29)
--- NOTE | 2020-10-16 15:42 | ED_ITS ---
HPI - Extremity Injury (Lower) <Bennett Abbasi PA-C - Last Filed: 10/16/20 16:12> General Chief Complaint: Extremity Injury, Lower Stated Complaint: Leg Injury Time Seen by Provider: 10/15/20 12:03 Source: patient and EMS Mode of arrival: EMS Limitations: no limitations History of Present Illness HPI Narrative: 79-year-old male with past medical history essential hypertension, hyperlipidemia, BPH, hypercalcemia, status post hip arthroplasty presents to the ED with 1 day of left hamstring pain. patient reports that his left hamstring has been bothering him over the last 2 weeks, described as mild discomfort. Today, the patient felt a snap in his left thigh, collapsed to the floor, unable to bear weight on the left leg. Patient denies head strike, denies blood thinners, denies loss of consciousness, dizziness, lightheadedness. Denies trauma. Denies numbness, tingling, weakness. Denies fever, chills, chest pain, shortness of breath, nausea, vomiting. No known drug allergies. Related Data Previous Rx's Medication Instructions Recorded lisinopril 10 mg tablet 10 mg PO DAILY #90 tab 07/31/20 simvastatin 80 mg tablet 80 mg PO DAILY #90 tab 07/31/20 tamsulosin 0.4 mg capsule 0.4 mg PO BID #180 cap 07/31/20 Allergies Allergy/AdvReac Type Severity Reaction Status Date / Time No Known Drug Allergies Allergy Verified 10/15/20 12:22 Review of Systems <Bennett Abbasi PA-C - Last Filed: 10/16/20 16:12> Constitutional Constitutional: Denies chills, Denies fever(s), Denies frequent falls, Denies lethargy and Denies weakness ENT Ears, Nose, Mouth, and Throat: Denies dizziness Cardiovascular Cardiovascular: Denies chest pain, Denies irregular heart rhythm, Denies ligh theadedness, Denies palpitations, Denies dyspnea, Denies dyspnea on exertion and Denies orthopnea Respiratory Respiratory: Denies cough, Denies dyspnea, Denies dyspnea on exertion and Denies wheezing Musculoskeletal Musculoskeletal: Denies numbness Comments: L leg pain in the region of the hamstrings Integumentary/Breasts Skin/Breast: Denies pruritus, Denies erythema, Denies rash and Denies wounds Neurologic Neurologic: Denies behavioral changes, Denies confusion, Denies dizziness, Denies frequent falls, Denies numbness and Denies weakness Psychiatric Psychiatric: Denies behavioral changes and Denies confusion Endocrine Endocrine: Denies palpitations Allergic/Immunologic Allergic/Immunologic: Denies wheezing Patient History <Bennett Abbasi PA-C - Last Filed: 10/16/20 16:12> Medical History (Updated 10/30/20 @ 00:00 by ) Benign prostatic hyperplasia with urinary obstruction (11/13/15) Essential hypertension (01/15/17) Hypercalcemia Melanoma Mixed hyperlipidemia (01/15/17) Osteoarthritis Parathyroid adenoma Personal history of colonic polyps Respiratory infection Sinus congestion Skin cancer Surgical History H/O arthroscopic knee surgery (~2013) H/O discectomy (~1975) H/O left knee surgery (~2012) History of colonoscopy History of hip replacement (~2004) History of vasectomy Hx of tonsillectomy Status post right knee replacement (~09/2019) Social History household members: spouse Smoking Status: Never smoker alcohol intake: current Smoking Status: Never smoker alcohol intake frequency: 0-2 drinks per day Substance Use Type: does not use Exam <Bennett Abbasi PA-C - Last Filed: 10/16/20 16:12> Initial Vital Signs Initial Vital Signs: Vital Signs Temperature 98.2 F 10/15/20 11:53 Pulse Rate 69 10/15/20 11:53 Respiratory Rate 18 10/15/20 11:53 Blood Pressure 153/71 H 10/15/20 11:53 Pulse Oximetry 97 10/15/20 11:53 Const General: cooperative [facility] Head: normocephalic and atraumatic Ears: external ears normal and TM's normal bilaterally Nose: external nose normal and No nasal discharge Face and sinus: sinuses nontender, face symmetric, no sinus tenderness and No dry mucous membranes Mouth: oral mucosae normal and moist mucous membranes Teeth and gingiva: dentition normal Throat: tonsils normal and uvula midline Resp Effort & Inspection: normal respiratory effort, able to speak in complete sentences, no respiratory distress and no use of accessory muscles Auscultation: clear to auscultation bilaterally, no rales, no rhonchi and no wheezes Cardio Rate: regular rate Rhythm: regular rhythm Heart Sounds: no click, no gallops, no murmurs and no rubs Pulses: normal peripheral pulses GI Inspection: non-distended Palpation: soft, no hepatosplenomegaly, No guarding, No pulsatile mass and No tender Auscultation: normal bowel sounds Back/Spine/Pelvis Back: No CVA tenderness Cervical Spine: cervical ROM normal and No pain with cervical ROM Thoracic/Lumbar Spine: thoracic and lumbar spine normal to inspection Skin General: no rashes or lesions noted, No jaundice and No petechiae Neuro General: patient alert, patient oriented x3, gait normal and no focal motor deficits Speech: speech normal Extrem General: full ROM, no clubbing, cyanosis or edema, no pedal edema and no calf tenderness Other: Range of motion limited by pain. Patient able to stand, unable to bear weight and walk on the left leg. No signs of trauma including lacerations, abrasions, bruising. No tenderness to palpation. No swelling, palpable cords, erythema. Neurovascularly intact. Cap refill less than 2 seconds. Psych Appearance: well kempt Mental Status: mental status grossly normal Attitude: cooperative Thought Content: normal and suicidality Judgment: judgment good <Zak Hernandes DO - Last Filed: 10/31/20 07:11> Initial Vital Signs Initial Vital Signs: Vital Signs Temperature 98.2 F 10/15/20 11:53 Pulse Rate 69 10/15/20 11:53 Respiratory Rate 18 10/15/20 11:53 Blood Pressure 153/71 H 10/15/20 11:53 Pulse Oximetry 97 10/15/20 11:53 Course <Bennett Abbasi PA-C - Last Filed: 10/16/20 16:12> Course Course Narrative: Pain improved with morphine, flexeril, ibuprofen. Patient has a orthopedic surgeon he sees and with whom her will f/u. Shared decision making with patient to discharge home with walker. Orders Ordered: Discontinued Medications Cyclobenzaprine HCl (Cyclobenzaprine 10 Mg Tablet) 10 mg PO NOW ONE Stop: 10/15/20 13:52 Last Admin: 10/15/20 14:29 Dose: 10 mg Documented by: ALIREZA Ibuprofen (Ibuprofen 400 Mg Tablet) 600 mg PO NOW ONE Stop: 10/15/20 15:26 Last Admin: 10/15/20 15:29 Dose: 600 mg Documented by: ALIREZA Morphine Sulfate (Morphine 4 Mg/Ml Inj) 4 mg IV NOW ONE Stop: 10/15/20 12:47 Last Admin: 10/15/20 12:58 Dose: 4 mg Documented by: ALIREZA <Zak Hernandes DO - Last Filed: 10/31/20 07:11> Orders Ordered: Discontinued Medications Cyclobenzaprine HCl (Cyclobenzaprine 10 Mg Tablet) 10 mg PO NOW ONE Stop: 10/15/20 13:52 Last Admin: 10/15/20 14:29 Dose: 10 mg Documented by: ALIREZA Ibuprofen (Ibuprofen 400 Mg Tablet) 600 mg PO NOW ONE Stop: 10/15/20 15:26 Last Admin: 10/15/20 15:29 Dose: 600 mg Documented by: ALIREZA Morphine Sulfate (Morphine 4 Mg/Ml Inj) 4 mg IV NOW ONE Stop: 10/15/20 12:47 Last Admin: 10/15/20 12:58 Dose: 4 mg Documented by: ALIREZA MDM - Extremity Injury (Lower) <Bennett Abbasi PA-C - Last Filed: 10/16/20 16:12> Medical Records Attestation: I reviewed the patient's medical records. Imaging Data Extremity x-ray #1: My Impression: No fracture/dislocation Radiologist's Impression: PROCEDURE: XR KNEE LT 1TO2V INDICATIONS: L leg pain, inability to bear weight TECHNIQUE: 3 views of the knee were acquired. COMPARISON: [facility], , XR KNEE RT 1TO2V, 10/16/2019, 14:02. FINDINGS: Bones: Scattered degenerative subchondral sclerosis and spurring. No acute fracture identified. Mild narrowing of the lateral joint space. Soft tissues: Scattered vascular calcifications. Small joint effusion. IMPRESSION: Mild joint degeneration, with bulky osteophyte formation. Small joint effusion If the patient's pain or other symptoms persist, consider further evaluation with MRI Dictated by: Cam Park M.D. on 10/15/2020 at 13:58 Approved by: Cam Park M.D. on 10/15/2020 at 14:01 Extremity x-ray #2: My Impression: No fracture/dislocation Radiologist's Impression: PROCEDURE: XR FEMUR LT MIN 2V INDICATIONS: L leg pain TECHNIQUE: 2 views of the femur were acquired. COMPARISON: None. FINDINGS: Bones: No fractures or dislocations. No suspicious bony lesions. Expected alignment of left hip arthroplasty. Hardware appears intact. No evidence of hardware loosening. Soft tissues: Scattered vascular calcifications. IMPRESSION: Expected postoperative alignment of left hip arthroplasty. Dictated by: Cam Park M.D. on 10/15/2020 at 14:01 Approved by: Cam Park M.D. on 10/15/2020 at 14:02 US - DVT: My Impression: No DVT Radiologist's Impression: PROCEDURE: US PERIPH VENOUS LOW EXTREM LT INDICATIONS: PAIN TECHNIQUE: Real-time imaging, as well as color and pulse Doppler interrogation, were performed of the lower extremity deep veins from the inguinal ligament to the popliteal fossa. COMPARISON: None. FINDINGS: The common femoral, femoral and popliteal veins are normally compressible, and free of intraluminal thrombus. Color and pulse Doppler demonstrate normal phasic intraluminal flow. There is normal augmentation response to distal compression maneuver. IMPRESSION: Negative for deep venous thrombosis. Dictated by: Elkin Fajardo M.D. on 10/15/2020 at 12:27 Approved by: Elkin Fajardo M.D. on 10/15/2020 at 12:28 [facility] Narrative Medical decision making narrative: 79-year-old male with past medical history essential hypertension, hyperlipidemia, BPH, hypercalcemia, status post hip arthroplasty presents to the ED with 1 day of left hamstring pain. Concern for fractures, dislocation, DVT, sprain /strain/tears. will order knee and femur x- rays, ultrasound of left lower extremity. Will treat the pain. Will reassess. Likely discharge home. Discharge Plan Departure Patient Disposition: Home Clinical Impression: Sprain and strain Instructions: DI for Leg Pain Activity Restrictions/Additional Instructions: F/u with your orthopedic surgeon in 2 days. Take aleve for pain. Prescriptions: No Action simvastatin 80 mg tablet 80 mg PO DAILY Qty: 90 RF: 3 lisinopril 10 mg tablet 10 mg PO DAILY Qty: 90 RF: 3 tamsulosin 0.4 mg capsule 0.4 mg PO BID Qty: 180 RF: 3 Referrals: Jacques Duarte MD [Primary Care Provider] - <Zak Hernandes DO - Last Filed: 10/31/20 07:11> Cosign ED Attending Cosignature Attestation: Dr Hernandes Co-Sign Statement: I was available for consultation during this patient's emergency department visit. This chart is signed by myself for administrative purposes only. I did not have direct contact with this patient during this visit. They were seen independently by the APC.
== END 2020-10-15 15:52 | disposition home or self-care (01) ==
PROVIDERS: Emergency Provider Student in an Organized Health Care Education/Training Program; PCP Internal Medicine
DX: S86.812A Strain of other muscle(s) and tendon(s) at lower leg level, left leg, initial encounter (principal)
CPT/HCPCS: 73552; 73560; 93971; 96374; 99284; J2270

== ENCOUNTER → 2021-04-07 08:26 | Outpatient (CLI) | payer MEDICARE, SELFPAY ==
[2019-10-16 15:35] VITALS: BMI 25.7
[2021-04-07 11:02] LABS: Alanine Aminotransferase 48 IU/L (<50); Albumin 4.2 g/dL (3.5-5.0); Albumin Globulin Ratio 1.4 (1.0-2.8); Alkaline Phosphatase 106 U/L (38-126); Aspartate Aminotransferase 47 IU/L (17-59); BUN Creatinine Ratio 23.5 (6-22); Bilirubin Total 0.5 mg/dL (0.2-1.3); Blood Urea Nitrogen 27 mg/dL (9-20); Calcium 10.6 mg/dL (8.4-10.2); Carbon Dioxide 29 mmol/L (22-32); Chloride 108 mmol/L (98-107); Cholesterol 186 mg/dL (140-199); Estimated Glomerular Filt Rate > 60.0 mL/min (>60); Globulin 2.9 g/dL (1.7-4.1); Glucose 109 mg/dL (80-110); HDL Cholesterol 88 mg/dL (40-60); HEMOLYSIS < 15 (0-50); LDL Cholesterol Calculated 81 mg/dL (<100); Potassium 5.2 mmol/L (3.4-5.1); Sodium 139 mmol/L (137-145); Total Protein 7.1 g/dL (6.3-8.2); Triglycerides 85 mg/dL (35-150)
== END ==
PROVIDERS: PCP Internal Medicine; Referring Provider Internal Medicine; Visit Provider Internal Medicine
DX: I10 Essential (primary) hypertension (principal); D35.1 Benign neoplasm of parathyroid gland; E78.2 Mixed hyperlipidemia
CPT/HCPCS: 36415; 80053; 80061

== ENCOUNTER → 2021-10-06 11:34 | Outpatient (CLI) | payer MEDICARE, SELFPAY ==
[2019-10-16 15:35] VITALS: BMI 25.7
[2021-10-06 13:29] LABS: Alanine Aminotransferase 27 IU/L (<50); Albumin 4.2 g/dL (3.5-5.0); Albumin Globulin Ratio 1.4 (1.0-2.8); Alkaline Phosphatase 85 U/L (38-126); Aspartate Aminotransferase 37 IU/L (17-59); BUN Creatinine Ratio 36.4 (6-22); Bilirubin Total 0.3 mg/dL (0.2-1.3); Blood Urea Nitrogen 47 mg/dL (9-20); Calcium 10.5 mg/dL (8.4-10.2); Carbon Dioxide 27 mmol/L (22-32); Chloride 106 mmol/L (98-107); Estimated Glomerular Filt Rate 55 mL/min (>60); Globulin 3.1 g/dL (1.7-4.1); Glucose 95 mg/dL (80-110); HEMOLYSIS < 15 (0-50); Potassium 5.1 mmol/L (3.4-5.1); Sodium 137 mmol/L (137-145); Total Protein 7.3 g/dL (6.3-8.2)
== END ==
PROVIDERS: PCP Internal Medicine; Referring Provider Internal Medicine; Visit Provider Internal Medicine
DX: D35.1 Benign neoplasm of parathyroid gland (principal); E83.52 Hypercalcemia; I10 Essential (primary) hypertension
CPT/HCPCS: 36415; 80053

== ENCOUNTER → 2022-05-04 13:55 | Outpatient (CLI) | payer MEDICARE, SELFPAY ==
[2019-10-16 15:35] VITALS: BMI 25.7
[2022-05-04 14:32] LABS: Alanine Aminotransferase 447 IU/L (<50); Albumin 4.1 g/dL (3.5-5.0); Albumin Globulin Ratio 1.1 (1.0-2.8); Alkaline Phosphatase 476 U/L (38-126); Aspartate Aminotransferase 327 IU/L (17-59); BUN Creatinine Ratio 27.4 (6-22); Bilirubin Total 0.6 mg/dL (0.2-1.3); Blood Urea Nitrogen 32 mg/dL (9-20); Calcium 10.4 mg/dL (8.4-10.2); Carbon Dioxide 26 mmol/L (22-32); Chloride 104 mmol/L (98-107); Cholesterol 160 mg/dL (140-199); Estimated Glomerular Filt Rate > 60 mL/min (>60); Globulin 3.7 g/dL (1.7-4.1); Glucose 112 mg/dL (80-110); HDL Cholesterol 55 mg/dL (40-60); HEMOLYSIS < 15 (0-50); LDL Cholesterol Calculated 67 mg/dL (<100); Potassium 4.5 mmol/L (3.4-5.1); Sodium 137 mmol/L (137-145); Total Protein 7.8 g/dL (6.3-8.2); Triglycerides 189 mg/dL (35-150)
== END ==
PROVIDERS: PCP Internal Medicine; Referring Provider Internal Medicine; Visit Provider Internal Medicine
DX: E78.2 Mixed hyperlipidemia (principal); D35.1 Benign neoplasm of parathyroid gland; I10 Essential (primary) hypertension
CPT/HCPCS: 36415; 80053; 80061

== ENCOUNTER → 2022-05-07 09:52 | Outpatient (CLI) | payer MEDICARE, SELFPAY ==
[2019-10-16 15:35] VITALS: BMI 25.7
--- NOTE | 2022-05-07 09:54 | DI.US.S_ITS ---
PROCEDURE: US ABDOMEN LIMITED INDICATIONS: HEPATITIS TECHNIQUE: Real-time focused scanning was performed of the abdomen, with image documentation. COMPARISON: None. FINDINGS: The liver measures 16 cm, with overall unremarkable echotexture. Main portal vein is patent. The gallbladder is within normal limits. Biliary tree within normal limits, with the CBD measuring 5 mm. Pancreas is not well seen. IMPRESSION: No acute sonographic abnormality. Dictated by: Fortino Adrian M.D. on 05/07/2022 at 10:45 Approved by: Fortino Adrian M.D. on 05/07/2022 at 10:46
== END ==
PROVIDERS: PCP Internal Medicine; Referring Provider Internal Medicine; Visit Provider Internal Medicine
DX: K75.9 Inflammatory liver disease, unspecified (principal)
CPT/HCPCS: 76705

== ENCOUNTER → 2022-05-25 09:57 | Outpatient (CLI) | payer MEDICARE, SELFPAY ==
[2019-10-16 15:35] VITALS: BMI 25.7
[2022-05-25 11:27] LABS: Alanine Aminotransferase 41 IU/L (<50); Albumin 3.7 g/dL (3.5-5.0); Albumin Globulin Ratio 1.2 (1.0-2.8); Alkaline Phosphatase 147 U/L (38-126); Aspartate Aminotransferase 42 IU/L (17-59); BUN Creatinine Ratio 27.5 (6-22); Bilirubin Total 0.6 mg/dL (0.2-1.3); Bilirubin Unconjugated 0.3 mg/dL (0.0-1.1); Blood Urea Nitrogen 28 mg/dL (9-20); Carbon Dioxide 26 mmol/L (22-32); Chloride 105 mmol/L (98-107); Estimated Glomerular Filt Rate > 60 mL/min (>60); Globulin 3.2 g/dL (1.7-4.1); Glucose 99 mg/dL (80-110); HEMOLYSIS < 15 (0-50); Potassium 4.6 mmol/L (3.4-5.1); Sodium 137 mmol/L (137-145); Total Protein 6.9 g/dL (6.3-8.2)
== END ==
PROVIDERS: PCP Internal Medicine; Referring Provider Internal Medicine; Visit Provider Internal Medicine
DX: K75.9 Inflammatory liver disease, unspecified (principal)
CPT/HCPCS: 36415; 80048; 80076

== ENCOUNTER → 2023-12-20 10:59 | Outpatient (CLI) | payer MEDICARE, SELFPAY ==
[2019-10-16 15:35] VITALS: BMI 25.7
[2023-12-20 12:35] LABS: Alanine Aminotransferase 43 IU/L (<50); Albumin Globulin Ratio 1.4 (1.0-2.8); Alkaline Phosphatase 151 U/L (38-126); Aspartate Aminotransferase 44 IU/L (17-59); Bilirubin Total 0.6 mg/dL (0.2-1.3); Blood Urea Nitrogen 33 mg/dL (9-20); Calcium 11.1 mg/dL (8.4-10.2); Carbon Dioxide 25 mmol/L (22-32); Chloride 108 mmol/L (98-107); Cholesterol 166 mg/dL (140-199); Estimated Glomerular Filt Rate > 60 mL/min (>60); Globulin 2.8 g/dL (1.7-4.1); Glucose 107 mg/dL (80-110); HDL Cholesterol 89 mg/dL (40-60); HEMOLYSIS < 15 (0-50); LDL Cholesterol Calculated 66 mg/dL (<100); Potassium 5.3 mmol/L (3.4-5.1); Sodium 137 mmol/L (137-145); Total Protein 6.8 g/dL (6.3-8.2); Triglycerides 54 mg/dL (35-150)
== END ==
PROVIDERS: PCP Internal Medicine; Referring Provider Internal Medicine; Visit Provider Internal Medicine
DX: E78.2 Mixed hyperlipidemia (principal); I10 Essential (primary) hypertension; D35.1 Benign neoplasm of parathyroid gland; E83.52 Hypercalcemia
CPT/HCPCS: 36415; 80053; 80061

== ENCOUNTER → 2023-12-21 11:51 | Outpatient (CLI) | payer MEDICARE, SELFPAY ==
[2019-10-16 15:35] VITALS: BMI 25.7
[2023-12-22 09:45] LABS: Parathyroid Hormone Int 46 pg/mL (15-65)
[2023-12-22 12:10] LABS: Ionized Calcium 6.3 mg/dL (4.5-5.6)
== END ==
PROVIDERS: PCP Internal Medicine; Referring Provider Internal Medicine; Visit Provider Internal Medicine
DX: E83.52 Hypercalcemia (principal); D35.1 Benign neoplasm of parathyroid gland; I10 Essential (primary) hypertension; E78.2 Mixed hyperlipidemia
CPT/HCPCS: 36415; 82330; 83970

== ENCOUNTER → 2025-02-07 12:33 | Outpatient (CLI) | payer MEDICARE, SELFPAY ==
[2019-10-16 15:35] VITALS: BMI 25.7
[2025-02-07 13:20] LABS: Alanine Aminotransferase 34 IU/L (<50); Albumin 4.6 g/dL (3.5-5.0); Albumin Globulin Ratio 1.5 (1.0-2.8); Alkaline Phosphatase 117 U/L (38-126); Blood Urea Nitrogen 26 mg/dL (9-20); Calcium 10.8 mg/dL (8.4-10.2); Carbon Dioxide 24 mmol/L (22-32); Chloride 107 mmol/L (98-107); Cholesterol 173 mg/dL (140-199); Estimated Glomerular Filt Rate > 60 mL/min (>60); Globulin 3.1 g/dL (1.7-4.1); Glucose 105 mg/dL (70-99); HDL Cholesterol 106 mg/dL (40-60); HEMOLYSIS < 15 (0-50); Potassium 5.1 mmol/L (3.4-5.1); Sodium 140 mmol/L (137-145); Total Protein 7.7 g/dL (6.3-8.2); Triglycerides 88 mg/dL (35-150)
[2025-02-08 12:36] LABS: Calcium 10.9 mg/dL (8.6-10.2); Parathyroid Hormone, Intact 75 pg/mL (15-65)
== END ==
PROVIDERS: PCP Internal Medicine; Referring Provider Internal Medicine; Visit Provider Internal Medicine
DX: D35.1 Benign neoplasm of parathyroid gland (principal); E78.2 Mixed hyperlipidemia; E83.52 Hypercalcemia; I10 Essential (primary) hypertension
CPT/HCPCS: 36415; 80053; 80061; 82310; 83970